=== PATIENT | male | born 1970 | race Caucasian/White ===

== ENCOUNTER 2020-04-21 22:13 | Observation (INO) | payer BC ==
--- OUTSIDE RECORDS SUMMARY | 2020-04-21 22:15 | XMS REPORT | Clinical Summary ---
:1970 Author Organization [facility] Address [address] [place] [address] Care Team Providers Name Role Phone Paula Hooper Primary Care Provider Allergies Active Allergy Reactions Severity Noted Date Comments Hydrocodone 03/02/2014 Medications Medication Sig Dispensed Refills Start Date End Date Status carbidopa-levodopa Take 2 tablets 0 Active (PARCOPA) 25-100 mg per by mouth 4 disintegrating tablet (four) times daily . trihexyphenidyl Take 5 mg by 0 A ctive (ARTANE) 5 MG tablet mouth 4 (four) times daily . HYDROXYZINE HCL ORAL Take 25 mg by 0 Active mouth 2 (two) times daily as needed . nebivolol (BYSTOLIC) 10 Take 10 mg by 0 Active MG tablet mouth daily. lisinopril Take 20 mg by 0 Activ e (PRINIVIL,ZESTRIL) 20 mouth daily. MG tablet mirtazapine (REMERON) 0 12/25/2019 Active 15 MG tablet senna-docusate (SENOKOT Take 1 tablet 30 tablet 11 09/01/2018 0 09/01/2019 S) 8.6-50 mg per tablet by mouth daily. Active Problems Problem Noted Date Parkinson disease 09/16/2018 Parkinson's disease 08/31/2018 Pre-op testing 08/31/2018 Encounters Date Type Specialty Care Team Description 02/13/2020 Hospital Encounter Computed Tomography Anandan, Up per limb weakness; MD Ericka Glasslation 1, [facility] [address] Room 02/13/2020 Hospital Encounter Computed Tomography Vivianndan, Up per limb weakness; MD Mata Glass 1, [facility] [address] Room 02/02/2020 Hospital Encounter Radiology Vivianndan, Weakness of both arms; MD Quan Fasciculations 01/23/2020 Outside Orders Central Scheduling Anasydniean, Weaknes s of both arms (Primary Dx); MD Quan Fasciculations; Upper limb weak ness; Fasciculation 01/03/2020 Outside Orders Central Scheduling Yfn Farias Atro phy of muscle of multiple sites (Primary Dx); Fasciculations after 04/21/2019 Social History Tobacco Use Types Packs/Day Years Used Date Never Smoker Smokeless Tobacco: Never Used Alcohol Use Drinks/Week oz/Week Comments No Alcohol Habits Answer Date Recorded How often do you have a drink containing alcohol? Never 08/26/2018 How many drinks containing alcohol do you have on a typical Not asked day when you are drinking? How often do you have six or more drinks on one occasion? No t asked Sex Assigned at Date Recorded Not on file Last Filed Vital Signs Vital Sign Reading Time Taken Comments Blood Pressure 123/89 02/02/2020 10:38 AM JOB SERVICE SPECIALIST Pulse 83 02/02/2020 11:54 AM JOB SERVICE SPECIALIST Temperature 36.6 C (97.8 F) 02/02/2020 10:38 AM JOB SERVICE SPECIALIST Respiratory Rate 20 02/02/2020 10:38 AM JOB SERVICE SPECIALIST Oxygen Saturation 100% 02/02/2020 10:38 AM JOB SERVICE SPECIALIST Inhaled Oxygen Concentration - - Weight 83.9 kg (185 lb) 02/02/2020 7:35 AM JOB SERVICE SPECIALIST Height 175.3 cm (5' 9") 02/02/2020 7:35 AM JOB SERVICE SPECIALIST Body Mass Index 27.32 02/02/2020 7:35 AM JOB SERVICE SPECIALIST Plan of Treatment Health Maintenance Due Date Last Done Comments COLON CANCER SCREENING COLONOSCOPY 1970 LIPID PANEL 02/16/2004 DEPRESSION SCREENING (12+) 03/01/2019 INFLUENZA VACCINE (#1) 2019 Implants Implanted Type Area Computing Systems Mechanic Device Shelf Model / Identifier Expiration Serial / Date Lot Imp Directional Lead Kit 45cm Db-2202-45 - [id number] IMPLANTS Right: [employer]: 03/20/2020 DB-2202-45 / Implanted: Qty: 1 on 08/31/2018 by Jc Mon MD at [facility] Head NEUROMODULATION [id number] / [id number] Kt Nancy Hole Cover Db-4600-C - [id number] IMPLANTS Right: [employer]: 07/03/2020 DB-4600-[id number] / Implanted: Qty: 1 on 08/31/2018 by Jc Mon MD at [facility] Head NEUROMODULATION / [id number] Model Db-1200-S Vercise Gevia 16 Contact Implantable Pulse Gener ator Kit Left: [employer] 07/20/2020 DB-1200-[id number] / Implanted: Qty: 1 on 09/16/2018 by Jc Mon MD at [facility] Head [id number] / N/A 55cm 8 Contact Extension Kit Model [id number] Left: Rahul [employer] 05/14/2020 [id number] / Implanted: Qty: 1 on 09/16/2018 by Jc Mon MD at [facility] Head [id number] / N/A Procedures Procedure Name Priority Date/Time Associated Diagnosis Comme nts CT BRAIN WITH IV Routine 02/13/2020 1:24 PM Resu lts for this CONTRAST JOB SERVICE SPECIALIST procedure are i n the results section. CT SPINE CERVICAL Routine 02/13/2020 1:23 PM Res ults for this WITHOUT IV JOB SERVICE SPECIALIST procedure are i n CONTRAST the results section. POCT-CREATININE Routine 02/13/2020 12:50 PM Resul ts for this JOB SERVICE SPECIALIST procedure are i n the results section. FL LUMBAR PUNCTURE Routine 02/02/2020 10:25 AM Weakness of bot h Results for this IMAGE-GUIDED JOB SERVICE SPECIALIST arms procedure are in Fasciculations the results section. after 04/21/[address] brain with IV contrast (02/13/2020 1:24 PM JOB SERVICE SPECIALIST) Specimen Narrative Performed At FINAL REPORT [facility] Exam: CT brain with contrast History: 49-year-old male with Parkinson 's. Comparison studies: Head CT 09/01/2018 and 08/12/2018 Technique: Axial images were obtained from the skul l base to the vertex. Coronal and sagittal reconstructions obt ained from the axial data. Dose modulation, iterative reconstructio n, and/or weight based adjustment of the mA/kV was utilized to reduce the radiation dose to as low as reasonably achievable. Contrast: 100 mL of Isovue 300. Findings: Scalp/skull: Unchanged positioning of the right front al deep brain stimulator with the tip of the subthalamic nucleus. Stre ak artifact from the stimulator limits evaluation of the brai n along the lead tract. No fractures, blastic or lytic lesions. Extra-axial spaces: No masses. No fluid collections. Brain sulci: Appropriate for age. Ventricles: Normal in size and configura tion. No hydrocephalus. Parenchyma: No masses, hemorrhage, acute or chronic cortical vascular insults. Sellar/suprasellar region: No abnormalit ies Craniocervical junction: Patent foramen magnum. No Chiari one malformation. Other: Unchanged mucus retention cyst ve rsus polyp in the left sphenoid sinus. IMPRESSION: 1. Unchanged right frontal deep brain st imulator when compared to prior brain MRI performed September 01, 2018. 2. No abnormal intracranial enhancement. Signed: Katie Pena MD Report Verified Date/Time: 02/13/2020 15:25:34 Reading Location: [id number] Procedure Note Interface, External Ris In - 02/13/2020 3:27 PM JOB SERVICE SPECIALIST FINAL REPORT Exam: CT brain with contrast History: 49-year-old male with Parkinson 's. Comparison studies: Head CT 09/01/2018 and 08/12/2018 Technique: Axial images were obtained from the skul l base to the vertex. Coronal and sagittal reconstructions obt ained from the axial data. Dose modulation, iterative reconstructio n, and/or weight based adjustment of the mA/kV was utilized to reduce the radiation dose to as low as reasonably achievable. Contrast: 100 mL of Isovue 300. Findings: Scalp/skull: Unchanged positioning of the right front al deep brain stimulator with the tip of the subthalamic nucleus. Stre ak artifact from the stimulator limits evaluation of the brai n along the lead tract. No fractures, blastic or lytic lesions. Extra-axial spaces: No masses. No fluid collections. Brain sulci: Appropriate for age. Ventricles: Normal in size and configura tion. No hydrocephalus. Parenchyma: No masses, hemorrhage, acute or chronic cortical vascular insults. Sellar/suprasellar region: No abnormalit ies Craniocervical junction: Patent foramen magnum. No Chiari one malformation. Other: Unchanged mucus retention cyst ve rsus polyp in the left sphenoid sinus. IMPRESSION: 1. Unchanged right frontal deep brain st imulator when compared to prior brain MRI performed September 01, 2018. 2. No abnormal intracranial enhancement. Signed: Katie Pena MD Report Verified Date/Time: 02/13/2020 1 5:25:34 Reading Location: [facility] [place]any [place] 2 - B01.626 Performing Organization Address City/State/Zipcode Phone Number [facility] CT spine cervical without IV contrast (02/13/2020 1:23 PM JOB SERVICE SPECIALIST) Specimen Narrative Performed At FINAL REPORT [facility] Exam: CT cervical spine without contrast History: 49-year-old male with upper brock b weakness. Comparison studies: None Technique: Axial images were obtained through the c ervical region. Coronal and sagittal images reconstructe d from the axial data. Dose modulation, iterative reconstructio n, and/or weight based adjustment of the mA/kV was utilized to reduce the radiation dose to as low as reasonably achievable. Intravenous contrast: None Findings: Airway: Patent. Atlantoaxial articulation: Mild degenera tive findings at the atlantoaxial interval. Alignment: Straightening of normal lordo sis with mild rightward curvature. Cervicomedullary junction: No abnormalit ies. Patent foramen magnum. Soft tissues: No gross abnormalities. Vertebrae: No fractures, neoplasm or infection. Degenerative changes: C2-C3: Mild left neural foraminal narrow ing due to uncovertebral and facet arthropathy and asymmetric to the left disc bulge. No disc herniation or canal or right foraminal s tenosis. C3-C4: Asymmetric to the left disc osteo phyte complex and bilateral uncovertebral and facet arthropathy resu lt in moderate bilateral neural foraminal narrowing. No canal shantanu nosis. C4-C5: Moderate left neural foraminal na rrowing due to uncovertebral and facet arthropathy. No right foramina l or canal stenosis. No disc herniation. C5-C6: Diffuse disc osteophyte complex a nd bilateral uncovertebral arthropathy result in moderate bilateral neural foraminal narrowing. Central disc protrusion also causes mild canal stenosis. C6-C7: Asymmetric to the right disc oste ophyte complex and bilateral uncovertebral arthropathy result in og re right and mild left neural foraminal narrowing and mild canal steno sis. C7-T1: Severe left facet arthropathy res ults in mild left neural foraminal narrowing. No right foraminal or canal stenosis. No disc herniation or bulge. IMPRESSION: 1.Degenerative changes of the cervical s pine with mild canal stenosis at C5-C6 and C6-C7. 2.Severe right foraminal narrowing at C6 -C7. Signed: Katie Pena MD Report Verified Date/Time: 02/13/2020 15:38:11 Procedure Note Interface, External Ris In - 02/13/2020 3:40 PM JOB SERVICE SPECIALIST FINAL REPORT Exam: CT cervical spine without contrast History: 49-year-old male with upper brock b weakness. Comparison studies: None Technique: Axial images were obtained through the c ervical region. Coronal and sagittal images reconstructe d from the axial data. Dose modulation, iterative reconstructio n, and/or weight based adjustment of the mA/kV was utilized to reduce the radiation dose to as low as reasonably achievable. Intravenous contrast: None Findings: Airway: Patent. Atlantoaxial articulation: Mild degenera tive findings at the atlantoaxial interval. Alignment: Straightening of normal lordo sis with mild rightward curvature. Cervicomedullary junction: No abnormalit ies. Patent foramen magnum. Soft tissues: No gross abnormalities. Vertebrae: No fractures, neoplasm or infection. Degenerative changes: C2-C3: Mild left neural foraminal narrow ing due to uncovertebral and facet arthropathy and asymmetric to the left disc bulge. No disc herniation or canal or right foraminal s tenosis. C3-C4: Asymmetric to the left disc osteo phyte complex and bilateral uncovertebral and facet arthropathy resu lt in moderate bilateral neural foraminal narrowing. No canal shantanu nosis. C4-C5: Moderate left neural foraminal na rrowing due to uncovertebral and facet arthropathy. No right foramina l or canal stenosis. No disc herniation. C5-C6: Diffuse disc osteophyte complex a nd bilateral uncovertebral arthropathy result in moderate bilateral neural foraminal narrowing. Central disc protrusion also causes mild canal stenosis. C6-C7: Asymmetric to the right disc oste ophyte complex and bilateral uncovertebral arthropathy result in og re right and mild left neural foraminal narrowing and mild canal steno sis. C7-T1: Severe left facet arthropathy res ults in mild left neural foraminal narrowing. No right foraminal or canal stenosis. No disc herniation or bulge. IMPRESSION: 1.Degenerative changes of the cervical s pine with mild canal stenosis at C5-C6 and C6-C7. 2.Severe right foraminal narrowing at C6 -C7. Signed: Katie Pena MD Report Verified Date/Time: 02/13/2020 1 5:38:11 Performing Organization Address City/State/Zipcode Phone Number [email or web address] POC-Creatinine (02/13/2020 12:50 PM JOB SERVICE SPECIALIST) POC-Creatinine 0.7 0.6 - 1.3 [facility] Comment: mg/dL [facility] : TESTED AT [facility] [address] [facility] [phone] CENTER : Manager Er/Chief Deputy Coroner ID = [id number] for DON ELY POC-EGFR 119 mL/min/1.73M2 [facility] [place] [place] Specimen Blood Performing Organization Address City/State/Zipcode Phone Number [facility] [address] [place] [address] CENTER [place] Lumbar Puncture Image-Guided (02/02/2020 10:25 AM JOB SERVICE SPECIALIST) Specimen Narrative Performed At FINAL REPORT [facility] Examination: Fluoroscopic guided lumbar puncture Clinical indication: Weakness of the arm s; fasciculations. Physician: Dr. Katie Pena Anesthesia: None. Medications:1% lidocaine and bicarbonate . Exposure/ DAP: L5-S1 mGy-cm2 Flouro time: L5-S1 min. Procedure: Informed consent was obtained from the patient following delineation of the risks, benefits, and alternatives to the procedure. Patient was then taken to [facility] fluoroscopy suite and placed prone on the table. Preliminary imaging of the lumbosacral spine was performed. The patient's robert k was marked, prepped and draped in the usual sterile fashion. A fter administration of local anesthesia, a 22-gauge Sprotte needle wa s advanced to the right aspect of the L4-L5 level utilizing imag e guidance. Fluid was not seen at this level despite changing tico ent's position and therefore, after discussion with the patient and elpidio s , higher level was approached and so the needle was then in serted to the L1-L2 level. Once needle was seen in the thecal sac, the inner stylet was removed and fluid was seen draining. The patient was then placed in the left lateral decubitus position. Once needle location was confirmed, 13.5 ml of clear, colorless cerebrospinal flu id was removed and sent for analysis. The needle was removed and shantanu rile bandage was applied. The patient tolerated the procedure well and was discharged home after one hour nurse monitoring. Impression: Fluoroscopic-guided L1-L2 pu ncture with successful cerebrospinal fluid collection. Signed: Katie Pena MD Report Verified Date/Time: 02/02/2020 11:18:53 Reading Location: [place] [address] Procedure Note Interface, External Ris In - 02/02/2020 11:21 AM JOB SERVICE SPECIALIST FINAL REPORT Examination: Fluoroscopic guided lumbar puncture Clinical indication: Weakness of the arm s; fasciculations. Physician: Dr. Katie Pena Anesthesia: None. Medications:1% lidocaine and bicarbonate . Exposure/ DAP: L5-S1 mGy-cm2 Flouro time: L5-S1 min. Procedure: Informed consent was obtained from the patient following delineation of the risks, benefits, and alternatives to the procedure. Patient was then taken to e fluoroscopy suite and placed prone on the table. Preliminary imaging of the lumbosacral spine was performed. The patient's back was marked, prepped and draped in the usual sterile fashion. Af ter administration of local anesthesia, a 22-gauge Sprotte needle wa s advanced to the right aspect of the L4-L5 level utilizing imag e guidance. Fluid was not seen at this level despite changing tico ent's position and therefore, after discussion with the patient and elpidio s , higher level was approached and so the needle was then in serted to the L1-L2 level. Once needle was seen in the thecal sac, the inner stylet was removed and fluid was seen draining. The patient was then placed in the left lateral decubitus position. Once needle location was confirmed, 13.5 ml of clear, colorless cerebrospinal flu id was removed and sent for analysis. The needle was removed and shantanu rile bandage was applied. The patient tolerated the procedure well and was discharged home after one hour nurse monitoring. Impression: Fluoroscopic-guided L1-L2 pu ncture with successful cerebrospinal fluid collection. Signed: Katie Pena MD Report Verified Date/Time: 02/02/2020 1 1:18:53 Reading Location: [place] 2 - [id number] Performing Organization Address City/State/Zipcode Phone Number GE RIS after 04/21/2019 Insurance Payer Benefit Plan / Subscriber ID Effective Dates Phone Addre ss Type Group BLUE BCBS PPO POS [id number] 2014-Presen [id number] PPO CROSS/BLUE EPO CHOICE t 2 [facility] [id number] BLUE BCBS PPO POS [id number] 2019-Presen [phone] [id number] PPO CROSS/BLUE EPO CHOICE t 2 [facility] [id number] Advance Directives For more information, please contact: [phone] Code Status Date Activated Date Inactivated Comments Full Code 09/16/2018 6:53 AM 09/16/2018 1:27 PM This code status was determined by: Patient Full Code 08/31/2018 7:18 AM 09/01/2018 1:13 PM This code status was determined by: Patient
--- OUTSIDE RECORDS SUMMARY | 2020-04-21 22:15 | XMS REPORT | Continuity of Care Document ---
:1970 Author Organization [facility] t Address [address] [place] [address] Dr. Mc[address] [place] [address] Care Team Providers Name Role Phone Rufus Paula Primary Care Physician Bayron PhD, K Attending Clinician Flavio Moran MD Attending Clinician Dva Adler MD Attending Clinician Dinora COTE Attending Clinician Jannette COTE Attending Clinician [address], [address] Room Attending Clinician Unavailable JANNETTE Attending Clinician Unavailable Dinora COTE Attending Clinician Saul Bartholomew NP Attending Clinician Elver Adams MD Attending Clinician Ben COTE Attending Clinician BEN Attending Clinician Unavailable BEN Admitting Clinician Unavailable Payers Payer Name Policy Type Policy Effective Date Expiration Date Sour ce Number BLUE CROSS/BLUE [id number] [facility] POS EPO Center [id number] [phone], [place] [address]Q Problems Condition Condition Condition Status Onset Resolution Last Treating Co mments Source Name Details Category Date Date Treatment Clinician Date Parkinson Parkinson Disease Active [facility] disease disease 09-16 [facility] - 00:[facility]: Medical 00 [place] Parkinson' Parkinson' Disease Active [facility] disease s disease 08-31 [facility] - 00:00: Medical 00 [place] Pre-op Pre-op Disease Active [facility] testing testing 08-31 [facility] - 00:00: Medical 00 [place] Pain, Pain, Diagnosis Active [facility] joint, joint, [facility] - shoulder, shoulder, Jerrell paul right right l Outpati ent Clinics Impingemen Impingemen Diagnosis Active [facility] t syndrome t syndrome Linda kes - of right of right Memori a shoulder shoulder l Outpati ent Clinics Allergies, Adverse Reactions, Alerts Allergy Allergy Status Severity Reaction(s) Onset Inactive Treating Comm ents Source Name Type Date Date Clinician Hydrocod Drug Active [facility] one Allergy 03-02 [facility] - 00:00: Medical 00 [place] Social History Social Habit Start Date Stop Date Quantity Comments Source History [facility] Lurosemary - Alcohol Binge Medical Al ter Sex Assigned At [facility] History [facility] Lurosemary - Alcohol Std Drinks [facility] Tobacco use and 2020-02-02 2020-02-02 Never used [facility] - exposure 00:00:00 00:00:00 [facility] Alcohol intake 2020-02-02 2020-02-02 [facility]00 non-drinker of Medical Ce nter alcohol (finding) History [facility] 2018-08-26 2018-08-[address] [facility] - Alcohol Frequency 00:00:00 00:00:00 [facility] Smoking Status Start Date Stop Date Source [facility] smoker [facility] [place] Medications Ordered Filled Start Stop Current Ordering Indication Dosage Frequency Signature Comments Components Source Medication Medication Date Date Medication? Clinician (SIG) Name Name mirtazapine 2019-[address] (REMERON) 0-26 [facility] - 15 MG 00:00: Medical tablet 00 [place] carbidopa-l Yes 2{tbl} Q.25D Take [address] evodopa - tablets by [place] - (PARCOPA) 11:26: mouth 4 Medic al 25-100 mg 59 (four) Center per times disintegrat daily . ing tablet trihexyphen Yes 5mg Q.25D Take [address] idyl 7-19 by mouth 4 [facility] - (ARTANE) 5 11:26: (four) Medic al MG tablet 59 times Center daily . HYDROXYZINE Yes 25mg Take [address] HCL ORAL 7-19 by mouth 2 [facility] - 11:26: (two) Medical 59 times Center daily as needed . nebivolol Yes 10mg QD Take [address] (BYSTOLIC) 7-19 by mouth [facility] - 10 MG 11:26: daily. Medical tablet 59 Center lisinopril Yes 20mg QD Take [address] (PRINIVIL,Z 7-19 by mouth Luke s - ESTRIL) 20 11:26: daily. Medic al MG tablet 59 Center senna-docus 2020- No 1{tbl} QD Take [address] ate 09-01-03 tablet by [facility] - (SENOKOT S) 00:00: 23:59 mouth Medi juan carlos 8.6-50 mg 00 :00 daily. Center per tablet Lipitor Lipitor Yes Marc not [facility] defined [facility] Carbidopa-L Carbidopa-L Yes Marc not [facility] evodopa evodopa Chris defined [facility] - [facility]ics Bystolic Bystolic Yes Marc not [facility] defined [facility] - [facility] Trihexyphen Trihexyphen Yes Marc not [facility] idyl HCl idyl HCl Chris defined Linda kes - [facility] Vital Signs Vital Name Observation Time Observation Value Comments Source Heart rate 2020-02-02 11:54:00 83 /min [facility] Systolic blood 2020-02-02 10:38:00 123 mm[Hg] [facility] Diastolic blood 2020-02-02 10:38:00 89 mm[Hg] [facility] S t [facility] Body temperature 2020-02-02 10:38:00 36.56 Criss [facility] Respiratory rate 2020-02-02 10:38:00 20 /min [facility] Oxygen saturation in 2020-02-02 10:38:00 100 /min [facility] - Arterial blood by Medical Ce nter Pulse oximetry Body height 2020-02-02 07:35:00 175.3 cm [facility] Body weight 2020-02-02 07:35:00 83.915 kg [facility] BMI 2020-02-02 07:35:00 27.32 kg/m2 [facility] Procedures Procedure Date / Time Performed Performing Clinician Sour e CT BRAIN WITH IV 2020-02-13 13:24:[address] [facility] kes - CONTRAST [facility] CT SPINE CERVICAL 2020-02-13 13:23:[address] [place] hassan - WITHOUT IV CONTRAST Medical Al ter POCT-CREATININE 2020-02-13 12:50:00 Quan Ramey [facility] FL LUMBAR PUNCTURE 2020-02-02 10:25:00 Quan Ramey SHALINI [facility] - IMAGE-GUIDED [facility] Plan of Care Planned Activity Planned Date Details Comments Source Future Scheduled 2019-10-[address] [facility] - Test 00:00:00 (#1) [code = [facility] INFLUENZA VACCINE (#1)] Future Scheduled 2019-03-[address] [facility] - Test 00:00:00 (12+) [code = [facility] DEPRESSION SCREENING (12+)] Future Scheduled 2004-02-[address] [facility] - Test 00:00:00 (procedure) [code = [facility] [id number]] Future Scheduled [address] [facility] - Test 00:00:00 malignant neoplasm of [facility] colon (procedure) [code = 324662575] Encounters Start End Encounter Admission Attending Care Care Encounter Source Date/Time Date/Time Type Type Clinicians Facility Department ID 2020-03-08 2020-03-08 Office GORDY Verma [id number] 09:04:33 13:18:05 Visit Danny HENRY [id number] Y 0.2.7.2.686 [id number] 2020-03-08 2020-03-08 Office GORDY Moran [id number] 09:03:55 12:56:25 Visit Neno Peter AMBULATOR [id number] Y 0.2.7.2.686 [id number] 2020-03-05 2020-03-05 Office Vitor CHLOEEugenio 1.2.840.114 [id number] 10:05:41 10:25:41 Visit Joe AMBULATOR 350.1.13.21 P Y 0.2.7.2.686 [id number] 2020-02-28 2020-02-28 Office GORDY Farias 1.2.840.114 [id number] 10:33:56 14:37:49 Visit Yfn AMBULATOR 350.1.13.21 Y 0.2.7.2.686 [id number] 2019-12-20 2019-12-20 Office SkyeGORDY calov 1.2.840.114 [id number] 11:00:59 12:24:55 Visit Yfn AMBULATOR 350.1.13.21 Y 0.2.7.2.686 [id number] 2019-09-20 2019-09-20 Office SkyeGORDY calvo 1.2.840.114 [id number] 10:26:34 14:30:06 Visit Yfn AMBULATOR 350.1.13.21 Y 0.2.7.2.686 [id number] 2019-06-28 2019-06-28 Office SkyeGORDY calvo 1.2.840.114 [id number] 10:55:07 11:49:39 Visit Yfn AMBULATOR 350.1.13.21 Y 0.2.7.2.686 [id number] 2018-12-02 2018-12-02 Office GORDY Bartholomew 1.2.840.114 [id number] 09:08:02 09:40:27 Visit Orville Burns. AMBULATOR 350.1.13.21 Y 0.2.7.2.686 [id number] 2018-11-08 2018-11-08 Office Javonluisa HCLOEEugenio 1.2.840.114 [id number] 12:45:53 13:52:33 Visit Nallelymelanypamela Burns. AMBULATOR 350.1.13.21 Y 0.2.7.2.686 [id number] 2018-10-14 2018-10-14 Office GORDY Adams 1.2.840.114 [id number] 14:30:41 15:42:05 Visit Guanako AMBULATOR 350.1.13.21 Elver Y 0.2.7.2.686 [id number] 2018-10-06 2018-10-06 Office GORDY Bartholomew 1.2.840.114 [id number] 09:26:38 11:12:41 Visit Orville Hughes AMBULATOR 350.1.13.21 Y 0.2.7.2.686 [id number] 2018-09-26 2018-09-26 Office Ben [facility] 1.2.840.114 [id number] 14:51:46 15:42:54 Visit , Jc AMBULATOR 350.1.13.21 Y 0.2.7.2.686 [id number] 2018-08-30 2018-08-30 [facility] [id number] 13:30:00 13:30:00 t [facility] - [facility] Clin[facility] Results Test Test Test Results Result Source Description Time Comments Comments CT, SPINE, 2020-01- Unlisted CERVICAL, 15 Reason for WITHOUT IV 15:38:00 Exam - [facility] - MEDICAL CONTRAST Click Yes CENTERName: PIO CONTRERAS and Shira DAWSON : 1970 Reason Sex: Below->Yes M Unlisted Reason for *FINAL REPORT PATIENT ID: Exam->[id number] Exam: CT cervical 98, R25.3 spine without contrast History: 49-year-old male with upper limb weakness.Comparison studies: None Technique: Axial images were obtained through the cervical region.Coronal and sagittal images reconstructed from the axial data.Dose modulation, iterative reconstruction, and/or weight based adjustment of the mA/kV was utilized to reduce the radiation dose to as low as reasonably achievable. Intravenous contrast: None Findings: Airway: Patent. Atlantoaxial articulation: Mild degenerative findings at the atlantoaxial interval.Alignment: Straightening of normal lordosis with mild rightward curvature.Cervicomedullary junction: No abnormalities. Patent foramen magnum.Soft tissues: No gross abnormalities. Vertebrae: No fractures, neoplasm or infection. Degenerative changes:C2-C3: Mild left neural foraminal narrowing due to uncovertebral and facet arthropathy and asymmetric to the left disc bulge. No disc herniation or canal or right foraminal stenosis.C3-C4: Asymmetric to the left disc osteophyte complex and bilateral uncovertebral and facet arthropathy result in moderate bilateral neural foraminal narrowing. No canal stenosis.C4-C5: Moderate left neural foraminal narrowing due to uncovertebral and facet arthropathy. No right foraminal or canal stenosis. No disc herniation.C5-C6: Diffuse disc osteophyte complex and bilateral uncovertebral arthropathy result in moderate bilateral neural foraminal narrowing. Central disc protrusion also causes mild canal stenosis.C6-C7: Asymmetric to the right disc osteophyte complex and bilateral uncovertebral arthropathy result in severe right and mild left neural foraminal narrowing and mild canal stenosis.C7-T1: Severe left facet arthropathy results in mild left neural foraminal narrowing. No right foraminal or canal stenosis. No disc herniation or bulge. IMPRESSION: 1.Degenerative changes of the cervical spine with mild canal stenosis at C5-C6 and C6-C7. 2.Severe right foraminal narrowing at C6-C7. Signed: Katie Pena MDReport Verified Date/Time: 02/13/2020 15:38:11 spine 2020-01- Interface, External Ris In - [facility] cervical 15 02/13/2020 3:40 PM CSTFINAL [facility] - without IV 15:38:00 REPORT Medical contrast Exam: CT cervical spine C enter without contrast History: 49-year-old male with upper limb weakness.Comparison studies: None Technique: Axial images were obtained through the cervical region.Coronal and sagittal images reconstructed from the axial data.Dose modulation, iterative reconstruction, and/or weight based adjustment of the mA/kV was utilized to reduce the radiation dose to as low as reasonably achievable. Intravenous contrast: None Findings: Airway: Patent. Atlantoaxial articulation: Mild degenerative findings at the atlantoaxial interval.Alignment: Straightening of normal lordosis with mild rightward curvature.Cervicomedullary junction: No abnormalities. Patent foramen magnum.Soft tissues: No gross abnormalities. Vertebrae: No fractures, neoplasm or infection. Degenerative changes:C2-C3: Mild left neural foraminal narrowing due to uncovertebral and facet arthropathy and asymmetric to the left disc bulge. No disc herniation or canal or right foraminal stenosis.C3-C4: Asymmetric to the left disc osteophyte complex and bilateral uncovertebral and facet arthropathy result in moderate bilateral neural foraminal narrowing. No canal stenosis.C4-C5: Moderate left neural foraminal narrowing due to uncovertebral and facet arthropathy. No right foraminal or canal stenosis. No disc herniation.C5-C6: Diffuse disc osteophyte complex and bilateral uncovertebral arthropathy result in moderate bilateral neural foraminal narrowing. Central disc protrusion also causes mild canal stenosis.C6-C7: Asymmetric to the right disc osteophyte complex and bilateral uncovertebral arthropathy result in severe right and mild left neural foraminal narrowing and mild canal stenosis.C7-T1: Severe left facet arthropathy results in mild left neural foraminal narrowing. No right foraminal or canal stenosis. No disc herniation or bulge. IMPRESSION: 1.Degenerative changes of the cervical spine with mild canal stenosis at C5-C6 and C6-C7. 2.Severe right foraminal narrowing at C6-C7. Signed: Katie Pena MDRst. [facility] Verified Date/Time: 02/13/2020 15:38:11 , BRAIN, WITH 2020-01- Unlisted IV CONTRAST 15 Reason for 15:25:00 Exam - [facility] Click Yes CENTERName: Markie CONTRERAS : 1970 Reason Sex: Below->Yes M Unlisted Reason for *FINAL REPORT PATIENT ID: Exam->[id number] Exam: CT brain with 98, R25.3 contrast History: 49-year-old male with Parkinson's. Comparison studies: Head CT 09/01/2018 and 08/12/2018 Technique: Axial images were obtained from the skull base to the vertex. Coronal and sagittal reconstructions obtained from the axial data.Dose modulation, iterative reconstruction, and/or weight based adjustment of the mA/kV was utilized to reduce the radiation dose to as low as reasonably achievable. Contrast: 100 mL of Isovue 300. Findings: Scalp/skull: Unchanged positioning of the right frontal deep brain stimulator with the tip of the subthalamic nucleus. Streak artifact from the stimulator limits evaluation of the brain along the lead tract. No fractures, blastic or lytic lesions. Extra-axial spaces: No masses. No fluid collections. Brain sulci: Appropriate for age.Ventricles: Normal in size and configuration. No hydrocephalus. Parenchyma:No masses, hemorrhage, acute or chronic cortical vascular insults. Sellar/suprasellar region: No abnormalitiesCraniocervical junction: Patent foramen magnum. No Chiari one malformation. Other: Unchanged mucus retention cyst versus polyp in the left sphenoid sinus. IMPRESSION: 1. Unchanged right frontal deep brain stimulator when compared to prior brain MRI performed September 01, 2018.2. No abnormal intracranial enhancement. Signed: Katie Pena MDReport Verified Date/Time: 02/13/2020 15:25:34 Reading Location: [facility] Reading Room [address] [place] [address] brain with 2020-01- Interface, External Ris In - [facility] IV contrast 15 02/13/2020 3:27 PM [facility] - 15:25:00 REPORT Medical Exam: CT brain with contrast Center History: 49-year-old male with Parkinson's. Comparison studies: Head CT 09/01/2018 and 08/12/2018 Technique: Axial images were obtained from the skull base to the vertex. Coronal and sagittal reconstructions obtained from the axial data.Dose modulation, iterative reconstruction, and/or weight based adjustment of the mA/kV was utilized to reduce the radiation dose to as low as reasonably achievable. Contrast: 100 mL of Isovue 300. Findings: Scalp/skull: Unchanged positioning of the right frontal deep brain stimulator with the tip of the subthalamic nucleus. Streak artifact from the stimulator limits evaluation of the brain along the lead tract. No fractures, blastic or lytic lesions. Extra-axial spaces: No masses. No fluid collections. Brain sulci: Appropriate for age.Ventricles: Normal in size and configuration. No hydrocephalus. Parenchyma:No masses, hemorrhage, acute or chronic cortical vascular insults. Sellar/suprasellar region: No abnormalitiesCraniocervical junction: Patent foramen magnum. No Chiari one malformation. Other: Unchanged mucus retention cyst versus polyp in the left sphenoid sinus. IMPRESSION: 1. Unchanged right frontal deep brain stimulator when compared to prior brain MRI performed September 01, 2018.2. No abnormal intracranial enhancement. Signed: Katie Pena Verified Date/Time: 02/13/2020 15:25:34 Reading Location: [facility] Reading Room [address] [place] [address] -Creatinine 2020-02-13 13:12:00 Test Item Value Reference Range Interpretation Comme nts POC-Creatinine (test code = 0.7 mg/dL 0.6-1.3 : TESTED AT [facility] [address]) [facility] [place] [address]: Wildlife Conservationist/Techni regi ID = [id number] for DON ELY POC-EGFR (test code = 1860) 119 mL/min/1.73M2 [facility][id number] 13:12:00 Test Item Value Reference Range Interpretation Comments POC-CREATININE 0.7 mg/dL 0.6-1.3 : TESTED AT [facility] (RAFAL) (test [address] [facility] Grant BLDG code = 1859) A, [facility] [address] [address]: Wildlife Conservationist/Techni regi ID = [id number] for DON ELY POC-EGFR 119 mL/min/1.73M2 (RAFAL) (test code = 1860) [place], LUMBAR PUNCTURE, [id number] 11:18:00Labs to be ordered:->Other (please add comment)Reason for Exam:->[id number], R25.3 [facility] 1970 Sex: MFINAL REPORT Examination: Fluoroscopic guided lumbar puncture Clinical indication: Weakness of the arms; fasciculations. Physician: Dr. Katie Pena Anesthesia: None. Medications:1% lidocaine and bicarbonate. Exposure/ DAP: L5-S1 [id number] time: L5-S1 min. Procedure: Informed consent was obtained from the patient following delineation of the risks, benefits, and alternatives to the procedure. Patient was then taken to the fluoroscopy suite and placed prone on the table. Preliminary imaging of the lumbosacral spine was performed. The patient's back was marked, prepped and draped in the usual sterile fashion. After administration of local anesthesia, [id number] Sprotte needle was advanced to the right aspect of the L4-L5 level utilizing image guidance. Fluid was not seen at this level despite changing patient's position and therefore, after discussion with the patient and his , higher level was approached and so the needle was then inserted to the L1-L2 level. Once needle was seen in the thecal sac, the inner stylet was removed and fluid was seen draining. The patient was then placed in the left lateral decubitus position. Once needle locationwas confirmed, 13.5 ml of clear, colorless cerebrospinal fluid was removed and sent for analysis. The needle was removed and sterile bandage was applied. The patient tolerated the procedure well and was discharged home after one hour nurse monitoring. Impression: Fluoroscopic-guided L1-L2 puncture with successful cerebrospinal fluid collection. Signed: Katie Pena MDReport Verified Date/Time: 02/02/2020 11:18:53 Reading Location: [facility] Reading Room [address] [place] [address] [place] Lumbar Puncture [id number] 11:18:00 Interface, External Ris In - 02/02/2020 11:21 AM CSTFINAL REPORT Examination:Fluoroscopic guided lumbar puncture Clinical indication: Weakness of the arms; fasciculations. Physician: Dr. Katie Pena Anesthesia: None. Medications:1% lidocaine and bicarbonate. Exposure/ DAP: L5-S1 [id number] time: L5-S1 min. Procedure: Informed consent was obtained from the patient following delineation of the risks, benefits, and alternatives to the procedure. Patient was then taken to the fluoroscopy suite and placed prone on the table. Preliminary imaging of the lumbosacral spine was performed. The patient's back was marked, prepped and draped in the usual sterile fashion. A fter administration of local anesthesia, a 22-gauge Sprotte needle was advanced to the right aspect of the L4-L5 level utilizing image guidance. Fluid was not seen at this level despite changing patient's position and therefore, after discussion with the patient and his , higher level was approached and so the needle was then inserted to the L1-L2 level. Once needle was seen in the thecal sac, the inner stylet was removed and fluid was seen draining. The patient was then placed in the left lateral decubitus position. Once needle location was confirmed, 13.5 ml of clear, colorless cerebrospinal fluid was removed and sent for analysis. The needle was removed and sterile bandage was applied. The patient tolerated the procedure well and was discharged home after one hour nurse monitoring. Impression: Fluoroscopic-guided L1-L2 puncture with successful cerebrospinal fluid collection. Signed: Ktaie Pena MDRyaredort Verified Date/Time: 02/02/2020 11:18:53 Reading Location: [facility] ReadingRoom [address] [place] [address] [facility], WITHOUT [id number] 09:28:00FINAL REPORT CT, BRAIN, WITHOUT CONTRAST CLINICAL INDICATION: Parkinsons dz,typical, levodopa responsivePending discharge; s/p DBS COMPARISON: August 12, 2018 TECHNIQUE: Noncontrast axial CT imaging of the brain and skull. DOSE REDUCTION: Dose modulation, iterative reconstruction, and/or weight-based adjustment of the mA/kV was utilized to reduce the radiation dose to as low as reasonably achievable. FINDINGS:Status post placement of right frontal approach deep brain stimulator lead which terminates in the region of the subthalamic nuclei. Streak artifact from lead minimally limits evaluation of the adjacent parenchyma. Within these limitations, no intracranial hemorrhage,midline shift or mass effect. Midline structures are normally developed. Mild chronic microvascular ischemic changes of the periventricular and subcortical white matter are present. No hydrocephalus. Orbits are within normal limits. Prior left lens surgery. No obstructive paranasal sinus disease. IMPRESSION: Expected postsurgical appearance status post placement of right frontal approach deep brain stimulator lead If there is persistent clinical concern for intracranial pathology, MR examination is recommended for further characterization. Signed: Kizzy Vallesort Verified Date/Time: 09/01/2018 09:28:39 Reading Location: [facility] Neuro Reading Room BASIC METABOLIC [id number] 05:26:00 Test Item Value Reference Range Interpretation Comments SODIUM (BEAKER) 139 meq/L 136-145 (test code = 381) POTASSIUM (BEAKER) 4.2 meq/L 3.5-5.1 (test code = 379) CHLORIDE (BEAKER) 107 meq/L 98-107 (test code = 382) CO2 (BEAKER) (test 27 meq/L 22-29 code = 355) BLOOD UREA NITROGEN 21 mg/dL 7-21 (BEAKER) (test code = 354) CREATININE (BEAKER) 0.90 mg/dL 0.57-1.25 (test code = 358) GLUCOSE RANDOM 103 mg/dL 70-105 (BEAKER) (test code = 652) CALCIUM (BEAKER) 8.9 mg/dL 8.4-10.2 (test code = 697) EGFR (BEAKER) (test mL/min/1.73 INSUFFIC IENT CLINICAL code = 1092) sq m DATA TO CALCULA TE ESTIMATED GFR. [id number] 05:19:00 Test Item Value Reference Range Interpretation Comments PHOSPHORUS (BEAKER) (test code = 3.9 mg/dL 2.3-4.7 604) [id number] 05:19:00 Test Item Value Reference Range Interpretation Comments MAGNESIUM (BEAKER) (test code = 1.9 mg/dL 1.6-2.6 627) CBC (HEMOGRAM ONLY)2018-09-01 04:39:00 Test Item Value Reference Range Interpretation Comments WHITE BLOOD CELL COUNT (BEAKER) 9.2 K/ L 3.5-10.5 (test code = 775) RED BLOOD CELL COUNT (BEAKER) 4.70 M/ L 4.63-6.08 (test code = 761) HEMOGLOBIN (BEAKER) (test code = 14.2 GM/DL 13.7-17.5 410) HEMATOCRIT (BEAKER) (test code = 42.1 % 40.1-51.0 411) MEAN CORPUSCULAR VOLUME (BEAKER) 89.6 fL 79.0-92.2 (test code = 753) MEAN CORPUSCULAR HEMOGLOBIN 30.2 pg 25.7-32.2 (BEAKER) (test code = 751) MEAN CORPUSCULAR HEMOGLOBIN CONC 33.7 GM/DL 32.3-36.5 (BEAKER) (test code = 752) RED CELL DISTRIBUTION WIDTH 12.1 % 11.6-14.4 (BEAKER) (test code = 412) PLATELET COUNT (BEAKER) (test 164 K/CU MM 150-450 code = 756) MEAN PLATELET VOLUME (BEAKER) 10.6 fL 9.4-12.4 (test code = 754) NUCLEATED RED BLOOD CELLS 0 /100 WBC 0-0 (BEAKER) (test code = 413) FL, TENONER OPERATOR IN OR/30 MINUTE [id number] 22:17:00Reason for exam:- >Stage 1 Implantation Deep Brain StimulatorFINAL REPORT Examination: Intraoperative evaluation 195 images were obtainedduring the procedure by the ordering service. Images are nondiagnostic as no radiologist was present at the time of imaging. Fluoroscopic time was 4.0 seconds. Please see the procedure report for details. Signed: Joss Lozanoort Verified Date/Time: 08/31/2018 22:17:49 Reading Location: [address] Reading Room MR, BRAIN, [id number] 16:39:00FINAL REPORT MR, BRAIN, WITH \T\ WITHOUT CONTRAST INDICATION: parkinson's disease Technique: MRI of the brain utilizing axial T1, T2, FLAIR, GRE, DWI, sagittal T1; and postgadolinium axial, sagittal, and coronal T1-weighted images. COMPARISON: None FINDINGS:Brain parenchyma is normal in morphology. Midline structures are normally developed. No restricted diffusion to suggest recent ischemic insult. No abnormal susceptibility. Scattered T2/FLAIR hyperintense foci within the periventricular and subcortical white matter are nonspecific, however, statistically represent chronic microvascular ischemic changes. No hydrocephalus. Orbits are within normal limits. No obstructive paranasal sinus disease. Mucus retention cyst within the left sphenoid sinus. Additional findings: None. IMPRESSION: Unremarkable MRI of the brain. Signed: Kizzy Valles Verified Date/Time: 08/12/2018 16:39:59 Reading Location: [facility] Reading Room CT, BRAIN, WITHOUT [id number] 13:29:00parkinson's diseaseFINAL REPORT CT, BRAIN, WITHOUT CONTRAST CLINICAL INDICATION: Parkinson's disease (HCC) G20 parkinson's disease COMPARISON: None TECHNIQUE: Thin section noncontrast axial CT imaging of the brain and skull, per stealth protocol. DOSE REDUCTION: Dose modulation, iterative reconstruction, and/or weight-based adjustment of the mA/kV was utilized to reduce the radiation dose to as low as reasonably achievable. FINDINGS:Cerebral parenchyma: Unremarkable.Midline structures: Normally positioned.Cerebellum and brainstem: Normal.Ventricles: Normal volume.Extra-axial spaces: Unremarkable. Calvarium and skull base: Intact.Paranasal sinuses and mastoid air cells: Visible chambers are clear.Orbital contents: Included portions unremarkable. Additional findings: None. IMPRESSION: No acute intracranial abnormality. [facility] neuronavigational study. Signed: JR Brandt Robert MDReport Verified Date/Time: 08/12/2018 13:29:39 Reading Location: [facility] B1 C013V Neuro Reading Room
[2020-04-21 22:58] LABS: Absolute Lymphocytes (CBC) 1.5 K/uL (0.7-4.9); Basophils % 0.5 % (0-1.3); Hematocrit 44.2 % (39.6-49.0); Lymphocytes % 18.4 % (15.3-44.8); MPV 8.7 fL (7.6-11.3); RBC Red Blood Cell Count 4.92 M/uL (4.33-5.43)
[2020-04-21 23:03] LABS: Protime INR 1.11
[2020-04-21 23:20] LABS: ALT/SGPT 11 U/L (12-78); AST/SGOT 13 U/L (15-37); Albumin 3.7 g/dL (3.4-5.0); Alkaline Phosphatase 75 U/L (45-117); BUN Blood Urea Nitrogen 24 mg/dL (7-18); Bicarbonate 28 mmol/L (21-32); Bilirubin Direct < 0.1 mg/dL (0-0.2); Bilirubin Total 0.4 mg/dL (0.2-1.0); Glucose Level 135 mg/dL (74-106); NT PRO-BNP 6 pg/mL (<125); Protein, Total 6.8 g/dL (6.4-8.2); Sodium Level 139 mmol/L (136-145); Troponin (Emerg Dept Use Only) < 0.02 ng/mL (0.0-0.045)
--- NOTE | 2020-04-21 23:52 | EDPHYS ---
Physician Documentation [facility] Name: Sameer Shea Age: 50 yrs Sex: Male : 1970 Arrival Date: 04/21/2020 Time: 22:13 Bed 8 Private MD: Chintan Hooper ED Physician Abdulkadir Fleming HPI: 04/21 23:07 This 50 yrs old Male presents to ER via Wheelchair with complaints of Chest jmm pain. 23:07 Onset: gradually, just prior to arrival. The pain does not radiate. Associated signs jmm and symptoms: Pertinent positives: shortness of breath. The chest pain is described as a pressure. Duration: The patient or guardian reports a single episode, that is still ongoing. This is a 50 year old male with a history of parkinsons, ALS that presents to the ED with complaints of chest pressure beginning just prior to arrival along with some shortness of breath. . Historical: - Allergies: 22:32 No Known Allergies; ss - PMHx: 22:32 ALS; Parkinsons; Hypertension; ss - PSHx: 22:32 DBS; Elvin shoulder repair; ss - Immunization history:: Adult Immunizations up to date. - Social history:: Smoking status: Patient denies any tobacco usage or history of. ROS: 23:07 Constitutional: Negative for fever, chills, and weight loss. jmm 23:07 Cardiovascular: Positive for chest pain. 23:07 Respiratory: Positive for shortness of breath. 23:07 All other systems are negative. Exam: 23:07 Head/Face: atraumatic. Eyes: EOMI, no conjunctival erythema appreciated ENT: Moist jmm Mucus Membranes Neck: Trachea midline, Supple Chest/axilla: Normal chest wall appearance and motion. 23:07 Abdomen/GI: Non distended, soft Back: Normal ROM Skin: General appearance color normal 23:07 Constitutional: The patient appears alert, awake, anxious. 23:07 Cardiovascular: Rate: tachycardic, Rhythm: regular. 23:07 Respiratory: the patient does not display signs of respiratory distress, Respirations: normal. 23:07 Neuro: unable to test due to ALS. 23:07 Psych: Behavior/mood is pleasant, cooperative. Vital Signs: 22:28 Pulse 108; Resp 17; Pulse Ox 96% ; Pain 0/10; ss 22:32 BP 97 / 74; ss 23:13 BP 120 / 85 LA; Pulse 93; Resp 18; Temp 98.7(TE); Pulse Ox 98% on R/A; ds4 MDM: 22:42 Patient medically screened. [facility] 23:51 Data reviewed: vital signs, nurses notes. ED course: I discussed the patient with Jamil Taylor whom accepted the patient to Dr. Majano service. . 04/21 22:39 Order name: Basic Metabolic Panel [facility] 04/21 22:39 Order name: CBC with Diff [facility] 04/21 22:39 Order name: LFT's [facility] 04/21 22:39 Order name: Magnesium; Complete Time: 23:22 [facility] 04/21 22:39 Order name: NT PRO-BNP; Complete Time: 23:22 [facility] 04/21 22:39 Order name: PT-INR; Complete Time: 23:41 [facility] 04/21 22:39 Order name: Troponin (emerg Dept Use Only); Complete Time: 23:22 [facility] 04/21 22:39 Order name: Basic Metabolic Panel; Complete Time: 23:22 [facility] 04/21 22:40 Order name: CBC with Automated Diff; Complete Time: 23:07 [facility] 04/21 22:40 Order name: Liver (Hepatic) Function; Complete Time: 23:22 [facility] 04/21 23:23 Order name: D-Dimer; Complete Time: 23:41 [facility] 04/21 23:32 Order name: COVID-19 : Document "Date of Symptom Onset" if Symptomatic. [facility] 04/21 22:39 Order name: XRAY Chest (1 view) [facility] 04/21 22:39 Order name: EKG; Complete Time: 22:40 [facility] 04/21 22:39 Order name: Cardiac monitoring; Complete Time: 22:42 [facility] 04/21 22:39 Order name: EKG - Nurse/Tech; Complete Time: 22:42 [facility] 04/21 22:39 Order name: IV Saline Lock; Complete Time: 22:42 [facility] 04/21 22:39 Order name: Labs collected and sent; Complete Time: 22:42 [facility] 04/21 22:39 Order name: O2 Per Protocol; Complete Time: 22:48 [facility] 04/21 22:39 Order name: O2 Sat Monitoring; Complete Time: 22:48 [facility] 04/22 00:40 Order name: COVID-19/FLU A+B EDMS Administered Medications: 04/22 00:39 Drug: Aspirin Chewable Tablet 324 mg Route: PO; rv 00:39 Follow up: Response: Medication administered at discharge. rv Disposition: 03:50 Co-signature as Attending Physician, Abdulkadir Fleming MD. [email or web address] Disposition: 04/21/20 23:52 Hospitalization ordered by Elyse Ford for Observation. Preliminary diagnosis is Chest pain, unspecified. - Bed requested for Telemetry/MedSurg (observation). - Status is Observation. rv - Condition is Stable. - Problem is new. - Symptoms are unchanged. Signatures: Dispatcher [employer] [facility] Dmitri Lubin PA PA [facility] Ofelia Nieves RN RN ss Jamil Taylor, DIRECTOR CUSTOMER-C DIRECTOR CUSTOMER-Cla1 Shilpa Gracia RN RN Evangelista Taylor RN RN rv Holmes, Maurice, MD MD 7 Corrections: (The following items were deleted from the chart) 04/21 23:23 23:15 D-DIMER+COAG.LAB.BRZ ordered. [facility] EDMS 23:53 23:33 Influenza Screen (A \\T\\ B)+BA.LAB.BRZ ordered. [facility] EDMS 23:54 23:33 CORONAVIRUS ordered. [facility] 04/22 01:34 04/21 23:52 Hospitalization Ordered by Elyse Ford MD for Observation. Preliminary cg diagnosis is Chest pain, unspecified. Bed requested for Telemetry/MedSurg (observation). Status is Observation. Condition is Stable. Problem is new. Symptoms are unchanged. [facility] 04/22 02:27 01:34 04/21/2020 23:52 Hospitalization Ordered by Elyse Ford MD for Observation. rv Preliminary diagnosis is Chest pain, unspecified. Bed requested for Telemetry/MedSurg (observation). Status is Observation. Condition is Stable. Problem is new. Symptoms are unchanged. cg
--- NOTE | 2020-04-21 23:52 | ER ---
Nurse's Notes [facility] Name: Sameer Shea Age: 50 yrs Sex: Male : 1970 Arrival Date: 04/21/2020 Time: 22:13 Bed 8 Private MD: Chintan Hooper Diagnosis: Chest pain, unspecified Presentation: 04/21 22:28 Chief complaint: Spouse and/or significant other states: "He has ALS and Parkinson's ss and just a little bit ago he said his chest felt heavy like he couldn't breath.". Coronavirus screen: Client denies travel out of the [place] in the last 14 days. Ebola Screen: Patient denies exposure to infectious person. Patient denies travel to an Ebola-affected area in the 21 days before illness onset. Initial Sepsis Screen: Does the patient have a suspected source of infection? No. Patient's initial sepsis screen is negative. Initial Sepsis Screen: Does the patient meet any 2 criteria? No. Patient's initial sepsis screen is negative. Risk Assessment: Do you want to hurt yourself or someone else? Patient reports no desire to harm self or others. Onset of symptoms was April 21, 2020. 22:28 Method Of Arrival: Wheelchair ss 22:28 Acuity: NATALIIA 3 ss Triage Assessment: 22:54 General: Appears comfortable. Respiratory: Reports shortness of breath at rest Onset: rv The symptoms/episode began/occurred suddenly, the patient has mild shortness of breath. Historical: - Allergies: 22:32 No Known Allergies; ss - PMHx: 22:32 ALS; Parkinsons; Hypertension; ss - PSHx: 22:32 DBS; Elvin shoulder repair; ss - Immunization history:: Adult Immunizations up to date. - Social history:: Smoking status: Patient denies any tobacco usage or history of. Screenin:53 Abuse screen: Denies threats or abuse. Denies injuries from another. Nutritional rv screening: No deficits noted. Tuberculosis screening: No symptoms or risk factors identified. Fall Risk No fall in past 12 months (0 pts). Secondary diagnosis (15 points) impaired mobility, IV access (20 points). Ambulatory Aid- Crutches/Cane/Walker (15 pts). Gait- Impaired (20 pts.). Mental Status- Oriented to own ability (0 pts). Total Nagel Fall Scale indicates High Risk Score (45 or more points). Fall prevention measures have been instituted. Side Rails Up X 2 Placed Close to Nursing Station Frequent Obs/Assessments Occuring Family Present and informed to notify staff if the need to leave the bedside As available patient and family educated on Fall Prevention Program and Strategies. Assessment: 22:52 General: Appears comfortable, Behavior is calm, cooperative. Pain: Denies pain. Neuro: rv Level of Consciousness is awake, alert, obeys commands, Oriented to person, place, time, situation. Cardiovascular: Rhythm is sinus tachycardia. Respiratory: Airway is patent Respiratory effort is even, unlabored, Breath sounds are clear bilaterally. Derm: Skin is intact. Vital Signs: 22:28 Pulse 108; Resp 17; Pulse Ox 96% ; Pain 0/10; ss 22:32 BP 97 / 74; ss 23:13 BP 120 / 85 LA; Pulse 93; Resp 18; Temp 98.7(TE); Pulse Ox 98% on R/A; ds4 ED Course: 22:13 Patient arrived in ED. am2 22:14 Chintan Hooper MD is Private Physician. am2 22:31 Triage completed. ss 22:32 Arm band placed on right wrist. ss 22:35 Evangelista Taylor, REUBEN is Primary Nurse. rv 22:38 Dmitri Lubin PA is PHCP. jmm 22:38 Abdulkadir Fleming MD is Attending Physician. jmm 22:45 Inserted saline lock: 20 gauge in right antecubital area, using aseptic technique. ds4 Blood collected. 22:54 Patient has correct armband on for positive identification. Bed in low position. Call rv light in reach. Side rails up X2. Adult w/ patient. electronic device monitor on. Pulse ox on. NIBP on. 22:54 No provider procedures requiring assistance completed. rv 23:19 XRAY Chest (1 view) In Process Unspecified. EDMS 23:51 Elyse Ford MD is Hospitalizing Provider. [facility] 04/22 00:16 IV is patent, with fluids infusing freely, Patient admitted, IV remains in place. rv Administered Medications: 00:39 Drug: Aspirin Chewable Tablet 324 mg Route: PO; rv 00:39 Follow up: Response: Medication administered at discharge. rv Outcome: 04/21 23:52 Decision to Hospitalize by Provider. david 04/22 00:16 Admitted to ER Hold. Please see [facility] for further documentation. rv Condition: good Instructed on the need for admit. 02:27 Patient left the ED. rv Signatures: Dispatcher [employer] EDMS Dmitri Lubin PA PA jmm Smirch, Shelby, REUBEN RN ss Jeremy Smith ds4 Archana Mills am2 Evangelista Taylor RN RN rv Corrections: (The following items were deleted from the chart) 04/21 23:30 23:13 BP 120 / 85 L Arm; Pulse 93bpm; Resp 18bpm; Pulse Ox 98% RA; rv ds4
[2020-04-22 00:40] LABS: SARS-COV-2 RT PCR NEGATIVE (NEGATIVE)
[2020-04-22] MEDS ORDERED: ASPIRIN 81 MG CHEWABLE TABLET ONE (00:49)
--- NOTE | 2020-04-22 01:36 | P.HP ---
Certification for Inpatient Patient admitted to: Observation With expected LOS: <2 Midnights Patient will require the following post-hospital care: None Practitioner: I am a practitioner with admitting privileges, knowledge of patient current condition, hospital course, and medical plan of care. Services: Services provided to patient in accordance with Admission requirements found in Title 42 Section 412.3 of the Code of Federal Regulations <LucyjoshJamil - Last Filed: 04/22/20 01:33> Patient History Date of Service: 04/22/20 Primary Care Provider: Dr. Hooper Reason for admission: CP History of Present Illness: 50-year-old male with history of hypertension, Parkinson's presents emergency department for chest pain/shortness of breath. Patient was resting in his bed when he began to have a pressure-like chest pain with associated shortness of breath, pain is currently ongoing rated at a 7/10. Initial troponin, EKG, chest x-ray unremarkable. Labs unremarkable. Last stress test a number of years ago per the . Patient is scheduled to have PEG tube placed and received CPAP/BiPAP machine in the coming weeks for his ALS diagnosis. ED provider wishes to admit patient for observation for chest pain rule out. Pain and shortness of breath could also be related to ALS with worsening respiratory function. - Past Medical/Surgical History -: Hypertension -: Parkinson's -: ALS -: Deep brain stimulator -: Bilateral shoulder surgery Psychosocial/ Personal History: Patient lives at home with his , is disabled. - Family History Mother -: Heart disease - Social History Smoking Status: Never smoker Alcohol use: No CD- Drugs: No Caffeine use: No Place of Residence: Home <Jamil Taylor - Last Filed: 04/22/20 01:33> Date of Service: 04/22/20 <Elyse Ford - Last Filed: 05/09/20 15:13> Allergies No Known Allergies Allergy (Unverified 04/22/20 02:30) Home Medications: Carbidopa/Levodopa [Rytary ER 48.75 mg-195 mg Cap] 1 each PO QID 04/22/20 Donepezil HCl 10 mg PO BEDTIME 04/22/20 Lisinopril [Zestril] 20 mg PO DAILY 04/22/20 Mirtazapine 15 mg PO BEDTIME 04/22/20 Riluzole 50 mg PO BID 04/22/20 Solifenacin [Vesicare*] 5 mg PO DAILY 04/22/20 Tamsulosin HCl 0.4 mg PO BEDTIME 04/22/20 armodafiniL [Armodafinil] 150 mg PO DAILY 04/22/20 Review of Systems 10-point ROS is otherwise unremarkable Respiratory: Shortness of Breath Cardiovascular: Chest Pain <Jamil Taylor - Last Filed: 04/22/20 01:33> Physical Examination - Physical Exam General: Alert, In no apparent distress, Oriented x3 HEENT: Atraumatic, Normocephalic Neck: Supple Respiratory: Diminished (Bilaterally) Cardiovascular: No edema, Normal S1 S2 Capillary refill: <2 Seconds Gastrointestinal: Normal bowel sounds, Soft and benign Musculoskeletal: No erythema, No tenderness, No warmth Integumentary: No tenderness/swelling, No erythema, No warmth Neurological: Normal speech, Sensation intact - Studies Laboratory Data (last 24 hrs) 04/21/20 22:44: PT 12.8 H, INR 1.11 04/21/20 22:44: WBC 7.90, Hgb 14.9, Hct 44.2, Plt Count 237 04/21/20 22:44: Sodium 139, Potassium 4.0, BUN 24 H, Creatinine 0.74, Glucose 135 H, Magnesium 2.0, Total Bilirubin 0.4, AST 13 L, ALT 11 L, Alkaline Phosphatase 75 <Jamil Taylor - Last Filed: 04/22/20 01:33> Assessment and Plan - Plan Assessment Chest pain rule out ACS Hypertension ALS Parkinson's Plan Chest pain rule out ACS: Trend troponins, monitor on telemetry. Cardiology consult. Anticipate normal troponins and likely discharge tomorrow to continue with care for ALS. Patient has appointment scheduled for BiPAP/CPAP and PEG tube insertion. DVT prophylaxis Lovenox 40 mg subcutaneous once daily. Hypertension: Continue home medications. ALS: Continue home meds and care for ALS on outpatient basis. Parkinson's: Continue home meds. Discharge Plan: Home Plan to discharge in: 24 Hours - Advance Directives Does patient have a Living Will: No Does patient have a Durable POA for Healthcare: No - Code Status/Comfort Care Code Status Assessed: Yes (DNR) Critical Care: No Time Spent Managing Pts Care (In Minutes): 55 <Jamil Taylor - Last Filed: 04/22/20 01:33> Date of Service: 04/22/20 Patient did well during hospital stay. Patient's echo was normal. At this time, patient is stable for discharge home. See discharge summary. <Elyse Ford - Last Filed: 05/09/20 15:13>
[2020-04-22] MEDS ORDERED: ONDANSETRON 4 MG/2 ML VIAL IV PRN (02:30)
[2020-04-22 03:22] VITALS: BMI 25.2
[2020-04-22 04:07] LABS: Absolute Lymphocytes (CBC) 1.6 K/uL (0.7-4.9); Basophils % 0.6 % (0-1.3); Hematocrit 42.5 % (39.6-49.0); Lymphocytes % 27.8 % (15.3-44.8); MPV 8.8 fL (7.6-11.3); RBC Red Blood Cell Count 4.68 M/uL (4.33-5.43)
[2020-04-22 04:27] LABS: BUN Blood Urea Nitrogen 23 mg/dL (7-18); Bicarbonate 30 mmol/L (21-32); Glucose Level 101 mg/dL (74-106); HDL Cholesterol 44 mg/dL (40-60); LDL Cholesterol, Calculated 64 (<130); Magnesium 2.1 mg/dL (1.8-2.4); Potassium 3.9 mmol/L (3.5-5.1); Sodium Level 140 mmol/L (136-145); Troponin I < 0.02 ng/mL (0.0-0.045)
[2020-04-22 07:56] LABS: Urine Appearance CLEAR; Urine Bilirubin NEGATIVE (NEG); Urine Blood NEGATIVE (NEG); Urine Color YELLOW; Urine Glucose NEGATIVE (NEG); Urine Protein NEGATIVE (NEG)
[2020-04-22 07:57] LABS: Urine Microscopic Reflex NO UMIC
--- NOTE | 2020-04-22 08:48 | RAD REPORT ---
EXAM DESCRIPTION: RAD - Chest Single View - 04/21/2020 11:19 pm CLINICAL HISTORY: SOB Chest pain. COMPARISON: No comparisons FINDINGS: Portable technique limits examination quality. Haziness is present left lung base which may indicate a mild infiltrate or atelectasis. The lungs are otherwise clear. The heart is normal in size. Single lead left-sided stimulator device.
[2020-04-22] MEDS ORDERED: ENOXAPARIN 40 MG/0.4 ML SQ SCH (09:00)
[2020-04-22] MEDS ORDERED: ASPIRIN EC 81 MG TAB PO SCH (09:00)
[2020-04-22] MEDS ORDERED: POTASSIUM 25 MEQ EFFERV TAB PO ONE (09:00)
--- NOTE | 2020-04-22 12:48 | CON ---
Date of Consultation: 04/22/[address] Ansari' service on 04/22/2020 Reason For Consultation: Chest pain. History Of Present Illness: Mr. Shea is a 50 years old. He has history of parkinsonism, dementia , hypertension, and ALS. He is a do not resuscitate. Came in with substernal chest pressure with sh ortness of breath that lasted for about 12 to 14 hours without any nausea, vomiting, diaphoresis, PND , orthopnea, pedal edema, palpitation, or syncope. Pain was nonexertional. The patient's pain did n ot radiate. It was not associated with body movement, food, or time of the day. He has already rule d out for an NM. Past Medical History: As stated above. Allergies: NONE. Review of Systems: Positive for being a DNR. Social History: Negative. Family History: Noncontributory. Medications: At home include carbidopa, tamsulosin, benazepril, VESIcare, lisinopril and a medicine called riluzole. Physical Examination: General: The patient has ALS. He did not speak. His family spoke for him and does not appear to be any acute distress. Vital Signs: Stable, afebrile. HEENT: Negative. Neck: Supple. No bruits. Chest: Clear. Cardiac: Revealed a regular rhythm and rate. No murmurs, gallops, or rubs. Abdomen: Benign. Extremities: No clubbing, cyanosis, or edema. Neurologic: and he has ALS. Diagnostic Studies: His workup has been completely negative. Normal EKG, normal x-ray, normal tropo rob. Impression And Plan: My impression is the patient has atypical chest pain, more likely related to am yotrophic lateral sclerosis or gastroesophageal reflux disease or possibly pulmonary. Echocardiogram is pending. I do not think the patient or the family want any invasive cardiac workup on him. We w ill see what the echocardiogram shows before making any further decisions. Continue present regimen. KIMBERLEE/BRIT Voice ID: [id number] Report ID: [id number]
[2020-04-22 16:14] VITALS: BP 112/71; TEMP 98
[2020-04-22] MEDS ORDERED: CARBIDOPA PO SCH (17:00)
[2020-04-22] MEDS ORDERED: LEVODOPA PO SCH (17:00)
[2020-04-22 18:19] VITALS: O2SAT 98
[2020-04-22] MEDS ORDERED: DONEPEZIL HCL 5 MG TAB PO SCH (21:00)
[2020-04-22] MEDS ORDERED: TAMSULOSIN 0.4 MG SR CAP PO SCH (21:00)
[2020-04-22] MEDS ORDERED: MIRTAZAPINE 15 MG TAB PO SCH (21:00)
[2020-04-22] MEDS ORDERED: RILUZOLE 50 MG PO SCH (21:00)
[2020-04-23] MEDS ORDERED: ARMODAFINIL 150 MG PO SCH (09:00)
[2020-04-23] MEDS ORDERED: SOLIFENACIN SUCCIN 5 MG TAB PO SCH (09:00)
[2020-04-23] MEDS ORDERED: lisinopriL 20 MG TAB PO SCH (09:00)
--- NOTE | 2020-04-23 09:12 | ECHO ---
HEIGHT: 5 ft 9 in WEIGHT: 171 lb 0 oz DATE OF STUDY: 04/22/[address]: Marko Yo MD 2-DIMENSIONAL: YES M.MODE: YES DOPPLER: YES COLOR FLOW: YES TDS: NO PORTABLE: NO DEFINITY: NO BUBBLE STUDY: NO DIAGNOSIS: CHEST PAIN CARDIAC HISTORY: CATHERIZATION: NO SURGERY: NO PROSTHETIC VALVE: NO PACEMAKER: NO MEASUREMENTS (cm) DIASTOLIC (NORMALS) SYSTOLIC (NORMALS) IVSd 1.0 (0.6-1.2) LA Diam 2.5 (1.9-4.0) LVEF 60% LVIDd 3.5 (3.5-5.7) LVIDs 2.4 (2.0-3.5) %FS 31% LVPWd 1.0 (0.6-1.2) Ao Diam 2.3 (2.0-3.7) 2 DIMENSIONAL ASSESSMENT: RIGHT ATRIUM: NORMAL LEFT ATRIUM: NORMAL RIGHT VENTRICLE: NORMAL LEFT VENTRICLE: NORMAL TRICUSPID VALVE: NORMAL MITRAL VALVE: NORMAL PULMONIC VALVE: NORMAL AORTIC VALVE: NORMAL PERICARDIAL EFFUSION: NONE AORTIC ROOT: NORMAL LEFT VENTRICULAR WALL MOTION: NORMAL DOPPLER/COLOR FLOW: NORMAL COMMENTS: NORMAL LEFT VENTRICULAR EJECTION FRACTION 55-60%. NORMAL WALL MOTION. TECHNOLOGIST: Terrie JEFFREY
--- NOTE | 2020-05-09 14:59 | P.DS ---
Discharge Date: 04/22/20 Primary Care Provider: Dr. Hooper Disposition: ROUTINE DISCHARGE Discharge Condition: GOOD Reason for Admission: CP Consultations: Political Cartoonist Brief History of Present Illness: 50-year-old male with history of hypertension, Parkinson's presents emergency department for chest pain/shortness of breath. Patient was resting in his bed when he began to have a pressure-like chest pain with associated shortness of breath, pain is currently ongoing rated at a 7/10. Initial troponin, EKG, chest x-ray unremarkable. Labs unremarkable. Last stress test a number of years ago per the . Patient is scheduled to have PEG tube placed and received CPAP/BiPAP machine in the coming weeks for his ALS diagnosis. ED provider wishes to admit patient for observation for chest pain rule out. Pain and shortness of breath could also be related to ALS with worsening respiratory function. Hospital Course: Echo was unremarkable. Patient is doing well and is stable for discharge. Patient will follow with Cardiology for further outpatient workup. Vital Signs/Physical Exam: Temp Pulse Resp BP Pulse Ox 98.0 F 84 18 112/71 98 04/22/20 16:00 04/22/20 16:00 04/22/20 16:00 04/22/20 16:00 04/22/20 16:00 General: Alert, In no apparent distress, Oriented x3 Laboratory Data at Discharge: WBC 5.90 K/uL (4.3-10.9) D 04/22/20 03:25 Hgb 14.1 g/dL (13.6-17.9) 04/22/20 03:25 Hct 42.5 % (39.6-49.0) 04/22/20 03:25 Plt Count 202 K/uL (152-406) 04/22/20 03:25 PT 12.8 SECONDS (9.5-12.5) H 04/21/20 22:44 INR 1.11 04/21/20 22:44 Sodium 140 mmol/L (136-145) 04/22/20 03:25 Potassium 3.9 mmol/L (3.5-5.1) 04/22/20 03:25 BUN 23 mg/dL (7-18) H 04/22/20 03:25 Creatinine 0.62 mg/dL (0.55-1.3) 04/22/20 03:25 Glucose 101 mg/dL (74-106) 04/22/20 03:25 Magnesium 2.1 mg/dL (1.8-2.4) 04/22/20 03:25 Total Bilirubin 0.4 mg/dL (0.2-1.0) 04/21/20 22:44 AST 13 U/L (15-37) L 04/21/20 22:44 ALT 11 U/L (12-78) L 04/21/20 22:44 Alkaline Phosphatase 75 U/L (45-117) 04/21/20 22:44 Troponin I < 0.02 ng/mL (0.0-0.045) 04/22/20 11:03 Triglycerides 54 mg/dL (<150) 04/22/20 03:25 Cholesterol 119 mg/dL (<200) 04/22/20 03:25 HDL Cholesterol 44 mg/dL (40-60) 04/22/20 03:25 Cholesterol/HDL Ratio 2.70 04/22/20 03:25 Home Medications: Carbidopa/Levodopa [Rytary ER 48.75 mg-195 mg Cap] 1 each PO QID 04/22/20 Donepezil HCl 10 mg PO BEDTIME 04/22/20 Lisinopril [Zestril] 20 mg PO DAILY 04/22/20 Mirtazapine 15 mg PO BEDTIME 04/22/20 Riluzole 50 mg PO BID 04/22/20 Solifenacin [Vesicare*] 5 mg PO DAILY 04/22/20 Tamsulosin HCl 0.4 mg PO BEDTIME 04/22/20 armodafiniL [Armodafinil] 150 mg PO DAILY 04/22/20 Physician Discharge Instructions: OK TO DC IV AND DC HOME FOLLOW-UP WITH PRIMARY CARE PROVIDER IN 1-2 WEEKS FOLLOW-UP WITH CARDIOLOGY IN 1-2 WEEKS RETURN TO THE ER IF symptoms worsen CALL or TEXT DR. FUCHS AT [phone] IF ANY QUESTIONS REGARDING HOSPITAL STAY. PLEASE CALL THE FLOOR AT [phone] IF ANY MEDICATION OR NURSING QUESTIONS. Diet: AHA Activity: Fall precautions Followup: Marko Yo MD [ACTIVE - CAN ADMIT] - 1-2 Weeks (Call for appointment.) Chintan Hooper MD [Primary Care Provider] - 1-2 Weeks (Call for appointment.)
== END 2020-04-22 18:38 | disposition home or self-care (01) ==
LOC: ER 22:13 → ERHOLD 04-22 00:52 → 4TH 04-22 02:03
PROVIDERS: ADMIT Hospitalist; ATTEND Hospitalist
DX: R07.89 Other chest pain (principal); G12.21 Amyotrophic lateral sclerosis; G20 Parkinson's disease; F02.80 Dementia in other diseases classified elsewhere, unspecified severity, without behavioral disturbance, psychotic disturbance, mood disturbance, and anxiety; I10 Essential (primary) hypertension; K21.9 Gastro-esophageal reflux disease without esophagitis; Z66 Do not resuscitate; Z20.822 Contact with and (suspected) exposure to COVID-19; Z82.49 Family history of ischemic heart disease and other diseases of the circulatory system
CPT/HCPCS: 93306; 85025 ×2; 80048 ×2; 36415; 83735 ×2; 85610; 80061; 85379; 80076; 84443; 81003; 84484 ×3; 84439; 83880; 0240U; 71045; 99285; J1650; G0378 ×2

== ENCOUNTER 2020-06-08 22:43 | Inpatient (IN) | payer BC ==
--- OUTSIDE RECORDS SUMMARY | 2020-06-08 22:47 | XMS REPORT | Continuity of Care Document ---
:1970 Author Organization [facility] t Address [address] [place] [address] Care Team Providers Name Role Phone HooperPaula Primary Care Physician Flavio Moran MD Attending Clinician Eugenio Corbett MD Attending Clinician Irvin Metz MD Attending Clinician Nato Clark MD Attending Clinician Gregory Adkins MD Attending Clinician Oumar MARSH Attending Clinician Unavailable System, Not In Attending Clinician Unavailable Bayron PhD, K Attending Clinician Dav Adler MD Attending Clinician Dinora COTE Attending Clinician Jannette COTE Attending Clinician [address] [place] [address] Room Attending Clinician Unavailable JANNETTE Attending Clinician Unavailable Dinora COTE Attending Clinician Saul Bartholomew NP Attending Clinician Elver Adams MD Attending Clinician Ben COTE Attending Clinician BEN Attending Clinician Unavailable BEN Admitting Clinician Unavailable Payers Payer Name Policy Type Policy Effective Date Expiration Date Sour ce Number [facility] [id number] [address] [facility] [id number] 2020- 00:00:00 - M edical PresentMedicare Center BLUE CROSS/BLUE [id number] [facility] [address] [facility] SHIELDBCBS PPO POS 6 00:00:00 - [facility] Center [id number], [place] [address]FA BCBSBCBS OUT OF 2019 [id number] 00:[facility] Met ignacioist 2019-PresentPPO Problems Condition Condition Condition Status Onset Resolution Last Treating Co mments Source Name Details Category Date Date Treatment Clinician Date Parkinson Parkinson Disease Active [facility] disease disease 09-16 - 00:00: Medical 00 [place] Parkinson' Parkinson' Disease Active [facility] disease s disease 08-31 [facility] - 00:00: Medical Center Pre-op Pre-op Disease Active [facility] testing testing 08-31 - 00:00: Medical 00 Center Pain, Pain, Diagnosis Active [facility] joint, joint, [facility] - shoulder, shoulder, Jerrell paul right right [facility] Clin[facility] Impingemen Impingemen Diagnosis Active [facility] t syndrome t syndrome [facility] - of right of right Memori a shoulder shoulder l Outpati ent Clinics Allergies, Adverse Reactions, Alerts Allergy Allergy Status Severity Reaction(s) Onset Inactive Treating Comm ents Source Name Type Date Date Clinician Hydrocod Drug Active Itching [facility] one Allergy 03-02 - 00:00: Medical 00 [place] Social History Social Habit Start Date Stop Date Quantity Comments Source History SDOH [facility] - Alcohol Std Drinks [facility] History SDOH [facility] - Alcohol Binge Medical Al ter Sex Assigned At [facility] Exposure to Not sure [facility] - SARS-CoV-2 (event) Medica l [place] Tobacco use and 2020-06-03 2020-06-[address] [facility] - exposure 00:00:00 00:00:00 Medical Center Alcohol intake 2020-06-03 2020-06-[address] [facility] - 00:[facility]:00 00:00:00 non-drinker of Medical Ce nter alcohol (finding) History SDOH 2018-08-26 2018-08-[address] [facility] - Alcohol Frequency 00:00:00 00:00:00 Medical Center Smoking Status Start Date Stop Date Source Never smoker [facility] - M edical Center Medications Ordered Filled Start Stop Current Ordering Indication Dosage Frequency Signature Comments Components Source Medication Medication Date Date Medication? Clinician (SIG) Name Name carbidopa-l Yes 2{tbl} Q.25D Take [address] evodopa 4-05 tablets by [facility] - (PARCOPA) 14:46: mouth 4 Medic al 25-100 mg 14 (four) Center per times disintegrat daily . ing tablet HYDROXYZINE Yes 25mg Take [address] HCL ORAL 4-05 by mouth 2 [facility] - 14:46: (two) Medical 14 times Center daily as needed . lisinopril Yes 20mg QD Take [address] (PRINIVIL,Z 4-05 by mouth Luke s - ESTRIL) 20 14:46: daily. Medic al MG tablet 14 Center tamsulosin Yes .8mg QD Take 0.[address] (FLOMAX) 4-05 mg by [facility] - 0.4 mg Cap 14:46: mouth Medica l 24 hr 14 daily. Center capsule trihexyphen 2020- No 5mg Q.25D Take [address] idyl 4-02 04-02 by mouth 4 [facility] - (ARTANE) 5 08:48: 00:00 (four) Medi juan carlos MG tablet 07 :00 times Center daily . nebivolol 2020- No 10mg QD Take [address] (BYSTOLIC) 4- 04-02 by mouth Luke [facility] - 10 MG 08:47: 00:00 daily. Medical tablet 45 :00 [place] mirtazapine 2019-03 Yes QD nightly . [facility] (REMERON) 0-26 [facility] - 15 MG 00:00: Medical tablet 00 Center senna-docus 2020- No 1{tbl} QD Take [address] ate 7-04 07-03 tablet by [facility] - (SENOKOT S) 00:00: 23:59 mouth Medi juan carlos 8.6-50 mg 00 :00 daily. Center per tablet Carbidopa-L Carbidopa-L Yes Marc not [facility] St evodopa evodopa Perez defined Luke [facility] - [facility] Bystolic Bystolic Yes Marc not [facility] defined [facility] Trihexyphen Trihexyphen Yes Marc not [facility] idyl HCl idyl HCl Perez defined Linda k[facility] - [facility] Lipitor Lipitor Yes Marc not [facility] Perez defined [facility] - [facility] Vital Signs Vital Name Observation Time Observation Value Comments Source Systolic blood 2020-06-03 13:59:00 126 mm[Hg] [facility] Diastolic blood 2020-06-03 13:59:00 81 mm[Hg] [facility] Heart rate 2020-06-03 13:59:00 123 /min [facility] Body temperature 2020-06-03 13:59:00 36.72 Criss [facility] Respiratory rate 2020-06-03 13:59:00 16 /min [facility] Oxygen saturation in 2020-06-03 13:59:00 97 /min [facility] Arterial blood by Medical Ce nter Pulse oximetry Body height 2020-06-03 11:47:00 175.3 cm [facility] Body weight 2020-06-03 11:47:00 66.225 kg [facility] BMI 2020-06-03 11:47:00 21.56 kg/m2 [facility] Procedures Procedure Date / Time Performed Performing Clinician [facility] e REPORT OF PROCEDURE - 2020-06-03 13:27:03 Jasen Metz I [facility] ENDOSCOPY [facility] UPPER ENDOSCOPY,PEG 2020-06-03 13:00:00 Jasen Metz [facility] CT BRAIN WITH IV 2020-02-13 13:24:00 Quan Ramey [facility] CONTRAST [facility] CT SPINE CERVICAL 2020-02-13 13:23:[address] [facility] - WITHOUT IV CONTRAST Medical Al ter POCT-CREATININE 2020-02-13 12:50:[address] [facility] [place] LUMBAR PUNCTURE 2020-02-02 10:25:[address] [facility] - IMAGE-GUIDED Medical Center Plan of Care Planned Activity Planned Date Details Comments Source Future Scheduled 2020-10-[address] [facility] - Test 00:00:00 (Season Ended) [code Medical Center = INFLUENZA VACCINE (Season Ended)] Future Scheduled 2020-09-29 INFLUENZA VACCINE [facility] 00:00:00 [code = INFLUENZA VACCINE] Future Scheduled 2020-05-[address] - Test 00:00:00 (WELCOME TO MEDICARE) [facility] [code = Medicare IPPE (WELCOME TO MEDICARE)] Future Scheduled 2020-03-[address] [facility] - Test 00:00:00 (12+) [code = Medical Center DEPRESSION SCREENING (12+)] Future Scheduled 2019 SHINGLES VACCINES ([address] [facility] - Test 00:00:00 of 2) [code = Medical Center SHINGLES VACCINES (1 of 2)] Future Scheduled 2019 COLONOSCOPY SCREENING [place] [facility] [facility] Test 00:00:00 [code = COLONOSCOPY SCREENING] Future Scheduled 2019 SHINGLES VACCINES [facility] 00:00:00 (#1) [code = SHINGLES VACCINES (#1)] Future Scheduled 2004-02-[address] [facility] - Test 00:00:00 (procedure) [code = Medical Center 25691194] Future Scheduled 1988-02-16 DTAP/TDAP/TD VACCINES [facility] Test 00:00:00 (1 - Tdap) [code = Medical C enter DTAP/TDAP/TD VACCINES (1 - Tdap)] Future Scheduled 1987 HEPATITIS C SCREENING [facility] Test 00:00:00 [code = HEPATITIS C Medical Center SCREENING] Future Scheduled 1987 Hepatitis C screening [place] [facility] [facility] Test 00:00:00 (procedure) [code = 137687986] Future Scheduled 1985 COVID-19 VACCINE (1) [facility] Test 00:00:00 [code = COVID-19 VACCINE (1)] Future Scheduled [address] [facility] - Test 00:00:00 malignant neoplasm of Medica l Center colon (procedure) [code = 454748300] Encounters Start End Encounter Admission Attending Care Care Encounter Source Date/Time Date/Time Type Type Clinicians Facility Department ID 2020-06-07 2020-06-07 Office GORDY Moran 1.2.840.114 [id number] 09:11:15 15:44:06 Visit Jabari Muniz AMBULATOR 350.1.13.21 Y 0.2.7.2.686 [id number] 2020-06-07 2020-06-07 Office GORDY Corbett 1.2.840.114 [id number] 09:13:10 09:33:10 Visit Surinder Becker AMBULATOR 350.1.13.21 Y 0.2.7.2.686 [id number] 2020-04-26 2020-04-26 [facility] [id number] [address] [place] [address] 00:00:00 00:00:00 JABARI Antonio [facility] 2020-03-08 2020-03-08 Office GORDY Verma 1.2.840.114 [id number] 09:04:33 13:18:05 Visit Danny Galvez AMBULATOR 350.1.13.21 Y 0.2.7.2.686 [id number] 2020-03-08 2020-03-08 Office GORDY Moran 1.2.840.114 [id number] 09:03:55 12:56:25 Visit Jabari Muniz AMBULATOR 350.1.13.21 Y 0.2.7.2.686 [id number] 2020-03-05 2020-03-05 Office GORDY Adler 1.2.840.114 [id number] 10:05:41 10:25:41 Visit Joe AMBULATOR 350.1.13.21 P Y 0.2.7.2.686 [id number] 2020-02-28 2020-02-28 Office GORDY Farias 1.2.840.114 [id number] 10:33:56 14:37:49 Visit Yfn AMBULATOR 350.1.13.21 Y 0.2.7.2.686 [id number] 2019-12-20 2019-12-20 Office CHLOE FariasM 1.2.840.114 [id number] 11:00:59 12:24:55 Visit Yfn AMBULATOR 350.1.13.21 Y 0.2.7.2.686 [id number] 2019-09-20 2019-09-20 Office Dinora BCM 1.2.840.114 [id number] 10:26:34 14:30:06 Visit Yfn AMBULATOR 350.1.13.21 Y 0.2.7.2.686 [id number] 2019-06-28 2019-06-28 Office Dinora BCM 1.2.840.114 [id number] 10:55:07 11:49:39 Visit Yfn AMBULATOR 350.1.13.21 Y 0.2.7.2.686 [id number] 2018-12-02 2018-12-02 Office Puma, BCM 1.2.840.114 [id number] 09:08:02 09:40:27 Visit Orville E. AMBULATOR 350.1.13.21 Y 0.2.7.2.686 [id number] 2018-11-08 2018-11-08 Office Puma, BCM 1.2.840.114 [id number] 12:45:53 13:52:33 Visit Camachog E. AMBULATOR 350.1.13.21 Y 0.2.7.2.686 [id number] 2018-10-14 2018-10-14 Office Angie BCM 1.2.840.114 [id number] 14:30:41 15:42:05 Visit Guanako AMBULATOR 350.1.13.21 Elver Y 0.2.7.2.686 [id number] 2018-10-06 2018-10-06 Office Puma, BCM 1.2.840.114 [id number] 09:26:38 11:12:41 Visit Camachog E. AMBULATOR 350.1.13.21 Y 0.2.7.2.686 [id number] 2018-09-26 2018-09-26 Office Ben CORONA 1.2.840.114 [id number] 14:51:46 15:42:54 Visit , Jc AMBULATOR 350.1.13.21 Y 0.2.7.2.686 [id number] 2018-08-30 2018-08-30 [id number] [facility] [address] 13:30:00 13:30:00 [facility] ent Clinics Results Test Test Test Results Result Source Description Time Comments Comments CT, SPINE, 2020-01- Unlisted CERVICAL, 15 Reason for WITHOUT IV 15:38:00 Exam - [facility] - MEDICAL CONTRAST Click Yes CENTERName: [facility]ERAS and Shira DAWSON : 1970 Reason Sex: Below->Yes M Unlisted Reason for *FINAL REPORT PATIENT ID: Exam->R29.8 [id number] Exam: CT cervical 98, R25.3 spine without [...] foraminal narrowing at C6-C7. Signed: Katie Pena [facility] Verified Date/Time: 02/13/2020 15:38:11 , BRAIN, WITH 2020-01- Unlisted IV CONTRAST 15 Reason for 15:25:00 Exam - [facility] - MEDICAL Click Yes CENTERName: [facility] and Shira DAWSON : 1970 Reason Sex: Below->Yes M Unlisted Reason for *FINAL REPORT PATIENT ID: Exam->R29.8 [id number] Exam: CT brain with 98, R25.3 contrast [...] Pena Verified Date/Time: 02/13/2020 15:25:34 Reading Location: [facility] Room [address] [place] [address] brain with 2020-01- Interface, External Ris In - [facility] IV contrast 15 02/13/2020 3:27 PM CSTFINAGUILA Monge - 15:25:00 REPORT Medical Exam: CT brain [...] Pena Verified Date/Time: 02/13/2020 15:25:34 Reading Location: [facility] Reading Room [address] [place] [address] -Creatinine 2020-02-13 13:12:00 Test Item Value Reference Range Interpretation Comme nts POC-Creatinine (test code = 0.7 mg/dL 0.6-1.3 : TESTED AT [facility] [address]) [facility] A, [facility] [address]: Insulation Supervisor/Techni regi ID = [id number] for DON ELY POC-EGFR (test code = 1860) 119 mL/min/1.73M2 [facility]-[id number] 13:12:00 Test Item Value Reference Range Interpretation Comments POC-CREATININE 0.7 mg/dL 0.6-1.3 : TEST[facility] AT [facility] (test [address] [facility] code = 1859) A, [facility] 7 7414: Insulation Supervisor/Techni regi ID = [id number] for DON ELY POC-EGFR 119 mL/min/1.73M2 (BEAKER) (test code = 1860) [place], LUMBAR PUNCTURE, [id number] 11:18:00Labs to be ordered:->Other (please add comment)Reason for Exam:->R29.898, R25.3 [facility] 1970 Sex: MFINAL REPORT Examination: Fluoroscopic guided lumbar puncture Clinical indication: Weakness of the arms; fasciculations. Physician: Dr. Katie Pena Anesthesia: None. Medications:1% lidocaine and bicarbonate. Exposure/ DAP: L5-S1 [id number] time: L5-S1 min. Procedure: Informed consent was obtained from the patient following delineation of the risks, benefits, and alternatives to the procedure. Patient was then taken to the fluoroscopy suite and placed prone on the table. Preliminary imaging of the lumbosacral spine was performed. The patient's back was marked, prepped and draped in the usual sterile fashion. After administration of local anesthesia, v98-oajlw Sprotte needle was advanced to the right [...] MDReport Verified Date/Time: 02/02/2020 11:18:53 Reading Location: [facility] Room [address] [place] [address] [place] Lumbar Puncture [id number] 11:18:00 Interface, External Ris In - 02/02/2020 11:21 AM CSTFINAL REPORT Examination:Fluoroscopic guided lumbar puncture Clinical indication: Weakness of the arms; fasciculations. Physician: Dr. Katie Pena Anesthesia: None. Medications:1% lidocaine and bicarbonate. Exposure/ DAP: L5-S1 [id number] time: L5-S1 min. Procedure: Informed consent was [...] MDReport Verified Date/Time: 02/02/2020 11:18:53 Reading Location: [place] [address] [facility], WITHOUT [id number] 09:28:00FINAL REPORT CT, BRAIN, WITHOUT CONTRAST CLINICAL [...] is recommended for further characterization. Signed: Kizzy Valles MDReport Verified Date/Time: 09/01/2018 09:28:39 Reading Location: [address] Neuro Reading Room BASIC METABOLIC [id number] 05:26:00 Test Item Value Reference Range Interpretation [...] m DATA TO CALCULA TE ESTIMATED GFR. [id number] 05:19:00 Test Item Value Reference Range Interpretation Comments PHOSPHORUS (BEAKER) (test code = 3.9 mg/dL 2.3-4.7 604) [id number] 05:19:00 Test Item Value Reference Range Interpretation [...] 0-0 (BEAKER) (test code = 413) [place], HEAD OF COMMISSION DEPARTMENT IN OR/30 MINUTE [id number] 22:17:00Reason for exam:- >Stage 1 Implantation Deep Brain StimulatorFINAL REPORT Examination: Intraoperative evaluation 195 images were obtainedduring the procedure by the ordering service. Images are nondiagnostic as no radiologist was present at the time of imaging. Fluoroscopic time was 4.0 seconds. Please see the procedure report for details. Signed: Joss Lozano MDReport Verified Date/Time: 08/31/2018 22:17:49 Reading Location: [address] Reading Room MR, BRAIN, [id number] 16:39:00FINAL REPORT MR, BRAIN, WITH \T\ WITHOUT [...] Valles Verified Date/Time: 08/12/2018 16:39:59 Reading Location: [facility] Radiology Reading Room CT, BRAIN, WITHOUT [id number] 13:29:00parkinson's diseaseFINAL REPORT CT, BRAIN, WITHOUT CONTRAST CLINICAL INDICATION: Parkinson's disease (HCC) G20 parkinson's disease COMPARISON: None TECHNIQUE: Thin section noncontrast axial CT imaging of the brain and skull, per [facility] protocol. DOSE REDUCTION: Dose modulation, iterative reconstruction, [...] findings: None. IMPRESSION: No acute intracranial abnormality. [facility] neuronavigational study. Signed: JR Brandt Robert MDReport Verified Date/Time: 08/12/2018 13:29:39 Reading Location: [facility] C0[facility] Neuro Reading Room
[2020-06-08] MEDS ORDERED: NA CHLORIDE 0.9% 3,000 ML ONE (23:17)
[2020-06-08] MEDS ORDERED: CEFEPIME 2 GM VIAL ONE (23:26)
[2020-06-08] MEDS ORDERED: NA CHLORIDE 0.9% 100 ML ONE (23:26)
[2020-06-09] LABS: Absolute Lymphocytes (CBC) 0.4 K/uL (0.7-4.9); Basophils % 0.2 % (0-1.3); Hematocrit 43.3 % (39.6-49.0); Lymphocytes % 2.9 % (15.3-44.8); MPV 9.4 fL (7.6-11.3)
[2020-06-09 00:22] LABS: Platelet Estimate ADEQ
[2020-06-09 00:23] LABS: Blood Morphology Comment NOT SEEN (NOT SEEN)
[2020-06-09] MEDS ORDERED: VANCOMYCIN 1 GM/VIAL ONE (00:28)
[2020-06-09] MEDS ORDERED: NA CHLORIDE 0.9% 250 ML ONE (00:28)
[2020-06-09] MEDS ORDERED: CLINDAMYCIN 900MG/D5W 900 MG/50 ML IVPB IV ONE (00:28)
[2020-06-09 00:29] LABS: SARS-COV-2 RT PCR NEGATIVE (NEGATIVE)
[2020-06-09 00:30] LABS: ALT/SGPT 24 U/L (12-78); AST/SGOT 15 U/L (15-37); Albumin 2.7 g/dL (3.4-5.0); Alkaline Phosphatase 68 U/L (45-117); BUN Blood Urea Nitrogen 19 mg/dL (7-18); Bicarbonate 26 mmol/L (21-32); Bilirubin Direct 0.1 mg/dL (0-0.2); Bilirubin Total 0.3 mg/dL (0.2-1.0); Glucose Level 229 mg/dL (74-106); Magnesium 1.9 mg/dL (1.8-2.4); NT PRO-BNP 32 pg/mL (<125); Potassium 4.7 mmol/L (3.5-5.1); Protein, Total 6.4 g/dL (6.4-8.2); Sodium Level 136 mmol/L (136-145); Troponin (Emerg Dept Use Only) 0.02 ng/mL (0.0-0.045)
--- NOTE | 2020-06-09 00:50 | EDPHYS ---
Physician Documentation [facility] Name: Sameer Shea Age: 50 yrs Sex: Male : 1970 Arrival Date: 06/08/2020 Time: 22:48 Bed 2 Private MD: ED Physician Abdulkadir Fleming HPI: 06/08 23:00 This 50 yrs old Male presents to ER via EMS with complaints of Difficulty cp Breathing. 23:00 The patient has shortness of breath at rest. Onset: The symptoms/episode began/occurred cp today. 23:00 EMS reports patient starting having difficulty breathing and near syncopal episode cp tonight after returning home. Historical: - Allergies: 22:53 No Known Allergies; wh - PMHx: 22:53 Hypertension; Parkinsons; ALS; wh - Immunization history:: Adult Immunizations unknown. - Social history:: Smoking status: unknown. ROS: 23:00 Respiratory: Positive for shortness of breath, at rest. cp 23:00 Constitutional: Negative for fever. cp 23:00 Cardiovascular: Negative for chest pain. 23:00 Abdomen/GI: Negative for abdominal pain. 23:00 All other systems are negative. Exam: 23:00 ECG was reviewed by the Attending Physician. cp 23:05 Constitutional: The patient appears alert, awake, non-diaphoretic, well developed, well cp nourished, obviously ill. 23:05 Head/Face: Normocephalic, atraumatic. cp 23:05 Eyes: Pupils: equal, round, and reactive to light and accomodation, Conjunctiva: normal, no exudate, no injection, Sclera: no appreciated abnormality, Lids and lashes: appear normal, bilaterally. 23:05 ENT: External ear(s): are unremarkable, Nose: is normal, Mouth: Lips: moist, Oral mucosa: moist, Posterior pharynx: Airway: no evidence of obstruction, patent. 23:05 Chest/axilla: Inspection: normal, Palpation: is normal, no crepitus, no tenderness. 23:05 Cardiovascular: Rate: tachycardic, Rhythm: regular, Edema: is not appreciated, JVD: is not appreciated. 23:05 Respiratory: moderate respiratory distress is noted, Respirations: shallow respirations, that is moderate, Breath sounds: bronchial sounds, that are moderate, are heard diffusely. 23:05 Abdomen/GI: Inspection: abdomen appears normal, Bowel sounds: active, all quadrants, Palpation: abdomen is soft and non-tender, in all quadrants. 23:05 Skin: no rash present. Vital Signs: 22:50 BP 82 / 49; Pulse 120; Resp 22; Temp 96.8; Pulse Ox 93% on BiPAP; 23:06 Weight 66.22 kg (R); 06/09 00:00 BP 116 / 100; Pulse 103; Resp 21; Pulse Ox 98% on BiPAP; 01:00 BP 130 / 94; Pulse 123; Resp 24; Pulse Ox 100% on BiPAP; 02:06 BP 128 / 84; Pulse 118; Resp 22; Pulse Ox 96% on BiPAP; MDM: 06/08 22:56 Patient medically screened. cp 23:05 Differential diagnosis: Myocardial Infarction pneumonia, Pneumothorax Sepsis. 06/09 00:45 Data reviewed: vital signs, nurses notes, lab test result(s), EKG, radiologic studies, cp plain films, and as a result, I will admit patient. 06/08 22:58 Order name: Basic Metabolic Panel 06/08 22:58 Order name: CBC with Diff 06/08 22:58 Order name: LFT's 06/08 22:58 Order name: Magnesium cp 06/08 22:58 Order name: NT PRO-BNP 06/08 22:58 Order name: PT-INR 06/08 22:58 Order name: Troponin (emerg Dept Use Only) 06/08 22:58 Order name: COVID-19 : Document "Date of Symptom Onset" if Symptomatic. 06/08 22:58 Order name: Lactate cp 06/08 22:58 Order name: Procalcitonin 06/08 22:58 Order name: Blood Culture Adult (2) 06/08 22:58 Order name: Influenza Screen (a \\T\\ B) 06/08 22:58 Order name: Basic Metabolic Panel; Complete Time: 00:35 EDMS 06/09 00:35 Interpretation: Normal except: GLUC 229; BUN 19; CA 8.4. 06/08 22:58 Order name: CBC with Automated Diff; Complete Time: 00:23 EDMS 06/09 00:23 Interpretation: Normal except: WBC 14.20; KORY% 91.3; LYM% 2.9; NEUT A 13.0; LYMA 0.4. 06/08 22:58 Order name: XRAY Chest (1 view); Complete Time: 15:13 cp 06/08 22:58 Order name: Liver (Hepatic) Function; Complete Time: 00:35 EDMS 06/08 22:58 Order name: Magnesium; Complete Time: 00:35 EDMS 06/08 22:58 Order name: NT PRO-BNP; Complete Time: 00:35 EDMS 06/08 22:58 Order name: Protime (+INR); Complete Time: 15:13 EDMS 06/08 22:58 Order name: Troponin (Emerg Dept Use Only); Complete Time: 00:35 EDMS 06/09 00:36 Interpretation: TROPED 0.02; Reviewed. 06/08 22:58 Order name: Lactate; Complete Time: 00:23 EDMS 06/08 22:58 Order name: Procalcitonin; Complete Time: 15:13 EDMS 06/08 23:21 Order name: Glucose, Ancillary Testing; Complete Time: 00:23 EDMS 06/09 00:23 Interpretation: Abnormal: GLUC,ANCIL 244. 06/09 00:05 Order name: Manual Differential; Complete Time: 00:35 EDMS 06/09 00:36 Interpretation: Reviewed. 06/09 00:24 Order name: ABG 06/09 00:29 Order name: COVID-19/FLU A+B; Complete Time: 00:35 EDMS 06/09 00:39 Order name: CT Chest For PE Angio 06/08 22:58 Order name: EKG; Complete Time: 22:59 cp 06/08 22:58 Order name: Cardiac monitoring; Complete Time: 23:03 cp 06/08 22:58 Order name: EKG - Nurse/Tech; Complete Time: 23:03 cp 06/08 22:58 Order name: IV Saline Lock; Complete Time: 23:03 cp 06/08 22:58 Order name: Labs collected and sent; Complete Time: 23:03 cp 06/08 22:58 Order name: O2 Per Protocol; Complete Time: 23:03 cp 06/08 22:58 Order name: O2 Sat Monitoring; Complete Time: 23:03 cp 06/08 22:58 Order name: Short; Complete Time: 00:15 cp 06/08 23:33 Order name: Labs - recollect needed: chemistry, and coags; Complete Time: 00:31 mw2 06/09 01:38 Order name: CONS Physician Consult EDMS EC/10 23:00 Rate is 123 beats/min. Rhythm is regular. WV interval is normal. QRS interval is cp normal. QT interval is normal. T waves are Inverted in lead aVR. Interpreted by me. Reviewed by me. Administered Medications: 23:18 Drug: NS 0.9% (30 ml/kg) 30 ml/kg Route: IV; Rate: bolus; Site: left antecubital; 23:50 Drug: Cefepime 2 grams Route: IVPB; Rate: 200 ml/hr; Infused Over: 30 mins; Site: left antecubital; 06/09 01:53 Follow up: Response: No adverse reaction; IV Status: Completed infusion 00:31 Drug: Clindamycin 900 mg Route: IVPB; Infused Over: 30 mins; Site: left antecubital; 01:53 Follow up: Response: No adverse reaction; IV Status: Completed infusion 02:08 Drug: vancoMYCIN 1 grams Route: IVPB; Infused Over: 2 hrs; Site: left antecubital; 02:12 Follow up: Response: No adverse reaction; IV Status: Infusion continued upon admission Disposition: 01:30 Chart complete. cp 06:05 Co-signature as Attending Physician, Abdulkadir Fleming MD. 7 Disposition: 06/09/20 00:50 Hospitalization ordered by Elyse Ford for Inpatient Admission. Preliminary diagnosis are Pneumonia due to other specified bacteria, Other sepsis. - Bed requested for Telemetry/MedSurg (Inpatient). - Status is Inpatient Admission. - Condition is Stable. - Problem is new. - Symptoms have improved. Signatures: Dispatcher [employer] EDKY Maria C Santos RN RN mw Ballard, Brenda, RN RN bb Page, Corey, PA PA cp Habalo, Winsy, RN RN Sharon Mtital [facility] Abdulkadir Fleming MD MD 7 Corrections: (The following items were deleted from the chart) 06/08 23:37 22:58 CORONAVIRUS ordered. EDKY EDMS 06/09 00:23 00:23 Normal except: WBC 14.20; KORY% 91.3; LYM% 2.9; NEUT A 13.0. cp cp 00:35 00:35 Normal except: GLUC 229; BUN 19. cp cp 01:52 00:50 Hospitalization Ordered by Elyse Ford MD for Inpatient Admission. Preliminary diagnosis is Pneumonia due to other specified bacteria; Other sepsis. Bed requested for Telemetry/MedSurg (Inpatient). Status is Inpatient Admission. Condition is Stable. Problem is new. Symptoms have improved. cp 01:55 01:52 06/09/2020 00:50 Hospitalization Ordered by Elyse Ford MD for Inpatient mw Admission. Preliminary diagnosis is Pneumonia due to other specified bacteria; Other sepsis. Bed requested for Telemetry/MedSurg (Inpatient). Status is Inpatient Admission. Condition is Stable. Problem is new. Symptoms have improved. mw 02:49 01:55 06/09/2020 00:50 Hospitalization Ordered by Elyse Ford MD for Inpatient Admission. Preliminary diagnosis is Pneumonia due to other specified bacteria; Other sepsis. Bed requested for Telemetry/MedSurg (Inpatient). Status is Inpatient Admission. Condition is Stable. Problem is new. Symptoms have improved. mw
--- NOTE | 2020-06-09 00:50 | ER ---
Nurse's Notes [facility] Name: Sameer Shea Age: 50 yrs Sex: Male : 1970 Arrival Date: 06/08/2020 Time: 22:48 Bed 2 Private MD: Diagnosis: Pneumonia due to other specified bacteria;Other sepsis Presentation: 06/08 22:50 Chief complaint: EMS states: Pt slid down from wheel chair per family. Pt with HX of wh ALS, according to EMS pt was unresponsive initially and cyanotic. Pt was on home BIPAP and was placed on EMS BIPAP. Pt was initially 66% on home BIPAP. Coronavirus screen: Client denies travel out of the [place] in the last 14 days. shortness of breath, Client presents with at least one sign or symptom that may indicate coronavirus-19. Ebola Screen: Patient negative for fever greater than or equal to 101.5 degrees Fahrenheit, and additional compatible Ebola Virus Disease symptoms Patient denies exposure to infectious person. Initial Sepsis Screen: Does the patient meet any 2 criteria? RR > 20 per min. HR > 90 bpm. Does the patient have a suspected source of infection? No. Patient's initial sepsis screen is negative. Risk Assessment: Do you want to hurt yourself or someone else? Patient reports no desire to harm self or others. Onset of symptoms was June 08, 2020. 22:50 Method Of Arrival: EMS: [facility] 22:50 Acuity: NATALIIA 3 22:54 Care prior to arrival: IV initiated. 20 GA, in the left antecubital area, Glucose check: 261. Triage Assessment: 06/09 02:07 General: Behavior is. Historical: - Allergies: 06/08 22:53 No Known Allergies; - PMHx: 22:53 Hypertension; Parkinsons; ALS; - Immunization history:: Adult Immunizations unknown. - Social history:: Smoking status: unknown. Screenin:14 Abuse screen: Denies threats or abuse. Denies injuries from another. Nutritional screening: No deficits noted. Tuberculosis screening: No symptoms or risk factors identified. Fall Risk Fall in past 12 months (25 points). Secondary diagnosis (15 points) impaired mobility, ALS. Assessment: 23:14 General: Appears distressed. Pain: Denies pain. Neuro: Level of Consciousness is awake, wh alert, Pt with Hx of Parkinsons and ALS. Pt non verbal and wheel chair bound. Per EMS communicates through hand sign of yes or no. Cardiovascular: Heart tones S1 S2 Rhythm is sinus tachycardia. Respiratory: Airway is patent Respiratory effort is labored, Respiratory pattern is tachypnea Breath sounds are diminished bilaterally. GI: Abdomen is flat, non-distended, PEG tube. : No signs and/or symptoms were reported regarding the genitourinary system. EENT: No signs and/or symptoms were reported regarding the EENT system. Derm: Skin is intact. Musculoskeletal: Parent/caregiver report the patient having Hx of ALS. 06/09 01:00 Reassessment: Patient appears in no apparent distress at this time. No changes from previously documented assessment. Patient and/or family updated on plan of care and expected duration. Pain level reassessed. Patient is alert, oriented x 3, equal unlabored respirations, skin warm/dry/pink. 01:30 Reassessment: Hospitalist at bedside explaining POC need for admit. 02:05 Reassessment: Patient appears in no apparent distress at this time. Patient and/or family updated on plan of care and expected duration. Pain level reassessed. Patient is alert, oriented x 3, equal unlabored respirations, skin warm/dry/pink. Vital Signs: 06/08 22:50 BP 82 / 49; Pulse 120; Resp 22; Temp 96.8; Pulse Ox 93% on BiPAP; 23:06 Weight 66.22 kg (R); 06/09 00:00 BP 116 / 100; Pulse 103; Resp 21; Pulse Ox 98% on BiPAP; 01:00 BP 130 / 94; Pulse 123; Resp 24; Pulse Ox 100% on BiPAP; 02:06 BP 128 / 84; Pulse 118; Resp 22; Pulse Ox 96% on BiPAP; ED Course: 06/08 22:48 Patient arrived in ED. 22:50 Shahida Dewey, REUBEN is Primary Nurse. 22:51 Jl Ness PA is PHCP. cp 22:51 Abdulkadir Fleming MD is Attending Physician. cp 22:53 Triage completed. 23:17 Patient has correct armband on for positive identification. Placed in gown. Bed in low wh position. Call light in reach. Side rails up X 1. school lunch monitor on. Pulse ox on. NIBP on. 23:18 Arm band placed on right wrist. 23:47 XRAY Chest (1 view) In Process Unspecified. EDNJ 06/09 00:11 Short cath inserted, using sterile technique, 16 Fr., by tn, balloon inflated, to oe gravity drainage, Patient tolerated well. 00:49 Elyse Ford MD is Hospitalizing Provider. cp 01:05 First set of blood cultures drawn unable to get full set of blood cultures used pedi bb culture after multiple attempts by staff. 02:26 No provider procedures requiring assistance completed. Patient admitted, IV remains in place. Administered Medications: 06/08 23:18 Drug: NS 0.9% (30 ml/kg) 30 ml/kg Route: IV; Rate: bolus; Site: left antecubital; 23:50 Drug: Cefepime 2 grams Route: IVPB; Rate: 200 ml/hr; Infused Over: 30 mins; Site: left antecubital; 06/09 01:53 Follow up: Response: No adverse reaction; IV Status: Completed infusion 00:31 Drug: Clindamycin 900 mg Route: IVPB; Infused Over: 30 mins; Site: left antecubital; 01:53 Follow up: Response: No adverse reaction; IV Status: Completed infusion 02:08 Drug: vancoMYCIN 1 grams Route: IVPB; Infused Over: 2 hrs; Site: left antecubital; 02:12 Follow up: Response: No adverse reaction; IV Status: Infusion continued upon admission Outcome: 00:50 Decision to Hospitalize by Provider. cp 02:27 Admitted to Tele accompanied by nurse, via stretcher, room 424, with oxygen, with chart, Report called to Diana ALEXIS 02:27 Condition: stable 02:27 Instructed on the need for admit. 02:49 Patient left the ED. Signatures: Dispatcher [employer] Eloina Delgado, REUBEN RN Jl Kemp PA PA cp Espinosa, Orlando oe Habalo, Winsy, RN RN Corrections: (The following items were deleted from the chart) 06/08 23:13 23:06 81.65 kg Reported; bb 23:14 23:13 BP 82 / 49; Pulse 120bpm; Resp 22bpm; Pulse Ox 93% BiPAP; Temp 96.8F; wh wh
[2020-06-09 01:15] LABS: Protime INR 1.19
--- NOTE | 2020-06-09 02:10 | P.HP ---
Certification for Inpatient Patient admitted to: Inpatient With expected LOS: >2 Midnights Patient will require the following post-hospital care: None Practitioner: I am a practitioner with admitting privileges, knowledge of patient current condition, hospital course, and medical plan of care. Services: Services provided to patient in accordance with Admission requirements found in Title 42 Section 412.3 of the Code of Federal Regulations <MarshallMatias Verónica - Last Filed: 06/09/20 02:20> Patient History Date of Service: 06/09/20 Primary Care Provider: Rufus Reason for admission: pneumonia History of Present Illness: Mr. Shea is a 50 yo male with HTN, Parkinsons, and ALS here today after sudden onset SOB, labored breathing, and diaphoresis beginning around 730pm. His rushed him home where he became nonresponsive and was unable to swallow. She could not get him in or out of the wheelchair, but she was able to start his home BiPAP by the time EMS arrived. He normally only uses BiPAP at night or as needed. Before tonight, he was at baseline functioning with no symptoms. Denies night sweats, chills, and cough. He had a peg tube placed on Wednesday but has not begun to use it yet. says she feeds him soft foods but he chokes pretty easily. Today he had oatmeal and sausage. She says he is now at baseline - he communicates with thumb (yes) and pointer finger (no). WBC 14.2. Glu 229. Initially hypotensive and tachycardic on arrival. - Past Medical/Surgical History Diabetic: No -: Hypertension -: Parkinson's -: ALS -: Deep brain stimulator -: Bilateral shoulder surgery -: PEG tube placement Psychosocial/ Personal History: Patient lives at home with his , is disab ed. - Family History Mother -: Heart disease - Social History Smoking Status: Never smoker Alcohol use: No CD- Drugs: No Caffeine use: No Place of Residence: Home <Matias Olivares - Last Filed: 06/09/20 02:20> Date of Service: 06/09/20 <Elyse Ford - Last Filed: 06/10/20 07:43> Allergies hydrocodone Allergy (Verified 06/09/20 03:47) Itching Home Medications: Lisinopril [Zestril] 20 mg PO DAILY 04/22/20 Mirtazapine 15 mg PO BEDTIME 04/22/20 Tamsulosin HCl 0.4 mg PO BEDTIME 04/22/20 Carbidopa/Levodopa [Rytary ER 48.75 mg-195 mg Cap] 1 each PO BID 06/09/20 Hyoscyamine Sulfate 0.125 mg SL BID 06/09/20 hydrOXYzine pamoate [Hydroxyzine Pamoate] 25 mg PO BID 6AM 6PM 06/09/20 Review of Systems General: Sweats, As per HPI Eyes: Unremarkable ENT: Unremarkable Respiratory: Shortness of Breath, As per HPI Cardiovascular: Unremarkable Gastrointestinal: Unremarkable Genitourinary: Unremarkable Musculoskeletal: Unremarkable Integumentary: Unremarkable Neurological: Unremarkable Lymphatics: Unremarkable <Matias Olivares - Last Filed: 06/09/20 02:20> Physical Examination - Physical Exam General: In no apparent distress, Cooperative, Other (nonverbal, communicates with thumb and pointer finger) HEENT: Atraumatic, Normocephalic, PERRLA, Mucous membr. moist/pink, EOMI, Sclera e nonicteric Neck: Supple, 2+ carotid pulse no bruit, JVD not distended, No Thyromegaly, No LAD Respiratory: Diminished, Dull Cardiovascular: No edema, Normal pulses, Regular rate/rhythm, Normal S1 S2, No gallops, No rubs, No murmurs Capillary refill: <2 Seconds Gastrointestinal: Normal bowel sounds, Soft and benign, Non-distended, No ascites, No tenderness, No masses, No rebound, No guarding, Other (PEG tube intact, site clean) Musculoskeletal: No clubbing, No swelling, No contractures, No erythema, No tenderness, No warmth Integumentary: No rashes, No breakdown, No significant lesion, No tenderness/swelling, No erythema, No warmth, No cyanosis Neurological: Sensation intact, Other ( reports at baseline neurological functioning ), Abnormal gait, Abnormal speech, Abnormal strength, Abnormal tone, Abnormal cranial nerve function, Abnormal reflexes, Abnormal affect Lymphatics: No axilla or inguinal lymphadenopathy Urinary: Short catheter - Studies Laboratory Data (last 24 hrs) 06/09/20 00:50: PT 13.7 H, INR 1.19 06/08/20 23:51: WBC 14.20 H, Hgb 14.1, Hct 43.3, Plt Count 223 06/08/20 23:51: Sodium 136, Potassium 4.7, BUN 19 H, Creatinine 0.61, Glucose 229 H, Magnesium 1.9, Total Bilirubin 0.3, AST 15, ALT 24, Alkaline Phosphatase 68 <Matias Olivares - Last Filed: 06/09/20 02:20> - Studies Microbiology Data (last 24 hrs): 06/08/20 13:45 Blood - Blood Anaerobic Blood Culture - Final 06/09/20 01:05 Blood - Blood Anaerobic Blood Culture - Final <Elyse Ford Jj - Last Filed: 06/10/20 07:43> Assessment and Plan - Problems (Diagnosis) (1) ALS (amyotrophic lateral sclerosis) Current Visit: Yes Status: Chronic (2) Parkinson disease Current Visit: Yes Status: Chronic (3) Hypertension Current Visit: Yes Status: Chronic Qualifiers: Hypertension type: essential hypertension Qualified Code(s): I10 - Essential (primary) hypertension (4) S/P percutaneous endoscopic gastrostomy (PEG) tube placement Current Visit: Yes Status: Chronic (5) Pneumonia Current Visit: Yes Status: Acute Qualifiers: Pneumonia type: due to unspecified organism Laterality: right Lung location: lower lobe of lung Qualified Code(s): J18.9 - Pneumonia, unspecified organism - Plan Pulm consulted, RT consulted, currently on continuous BiPAP. Patient is DNI. Currently calm. Cultures pending, continue IV abx, continue with IVF Use suction as needed Patient with new PEG tube placement but has not started feeds, dietitian consulted for tube feedings CRP pending, CTPE pending, DVT ppx Discharge Plan: Home Plan to discharge in: 72 Hours - Advance Directives Does patient have a Living Will: No Does patient have a Durable POA for Healthcare: No - Code Status/Comfort Care Code Status Assessed: Yes (DNI) Critical Care: No Time Spent Managing Pts Care (In Minutes): 70 <Matias Olivares - Last Filed: 06/09/20 02:20> Date of Service: 06/09/20 Agree with plan of care as mentioned above. Spoke with family and at this time patient is a do not resuscitate. Family is thinking of hospice as patient's condition is worsening. Patient has a living will and he would not want to be resuscitated. He does not want tracheostomy. Advised patient's family to get 2nd opinion from pulmonary. Possible hospice arrangements tomorrow. <Elyse Ford - Last Filed: 06/10/20 07:43>
[2020-06-09] MEDS ORDERED: NA CHLORIDE 0.9% 1,000 ML IV SCH (02:34)
[2020-06-09] MEDS ORDERED: ALBUTEROL 2.5 MG/3 ML NEB SOL NEB PRN (02:34)
[2020-06-09] MEDS ORDERED: ONDANSETRON 4 MG/2 ML VIAL IV PRN (02:34)
[2020-06-09 03:49] VITALS: BMI 24.8
[2020-06-09 06:10] LABS: Urine Appearance CLEAR (Clear); Urine Bilirubin NEGATIVE (Negative); Urine Blood 1+ (Negative); Urine Color YELLOW (Yellow); Urine Glucose NEGATIVE (Negative); Urine Protein NEGATIVE (Negative); Urine Specific Gravity >=1.030 (1.005-1.030); Urine Urobilinogen 0.2 mg/dL (0.2-1.0)
[2020-06-09 06:30] LABS: Urine Microscopic Reflex ORDER UMIC
[2020-06-09 06:56] LABS: Urine Bacteria <20 /HPF (NONE SEEN)
[2020-06-09 07:18] LABS: Blood Gas Oxyhemoglobin 87.7 % (94-97); Blood O2 Saturation 89.4 % (92-98.5)
[2020-06-09] MEDS: INSULIN -REGULAR HUMAN 50 UNIT/0.5 ML ML SQ SCH ×3 (07:30→16:15)
[2020-06-09 08:01] LABS: Absolute Lymphocytes (CBC) 0.6 K/uL (0.7-4.9); Basophils % 0.3 % (0-1.3); Lymphocytes % 4.2 % (15.3-44.8); RBC Red Blood Cell Count 4.84 M/uL (4.33-5.43)
[2020-06-09 08:20] LABS: ALT/SGPT 22 U/L (12-78); AST/SGOT 12 U/L (15-37); Albumin 2.5 g/dL (3.4-5.0); Alkaline Phosphatase 67 U/L (45-117); BUN Blood Urea Nitrogen 14 mg/dL (7-18); Bicarbonate 26 mmol/L (21-32); Bilirubin Total 0.3 mg/dL (0.2-1.0); Glucose Level 107 mg/dL (74-106); Magnesium 1.9 mg/dL (1.8-2.4); Phosphorus 3.4 mg/dL (2.5-4.9); Potassium 5.3 mmol/L (3.5-5.1); Protein, Total 6.1 g/dL (6.4-8.2); Sodium Level 138 mmol/L (136-145)
[2020-06-09] MEDS ORDERED: CEFEPIME/SWI 1gm 10 ML IVP SCH (09:00)
[2020-06-09] MEDS ORDERED: CEFEPIME 1 GM/VIAL IV SCH (09:00)
[2020-06-09] MEDS: Levofloxacin 750mg IV 750 MG/150 ML BAG IV SCH (09:10)
[2020-06-09] MEDS: ENOXAPARIN 40 MG/0.4 ML SQ SCH (09:11)
--- NOTE | 2020-06-09 10:37 | P.CNS ---
Date of Consult: 06/09/20 Reason for Consult: Respiratory failure Primary Care Provider: Rufus Chief Complaint: Respiratory distress History of Present Illness: Patient is 50 years of age has a history of end-stage ALS family he was at a ball game developed some respiratory distress the try to resuscitate him came in here to the hospital he looks fine now patient has a BiPAP at home recently had a PEG tube placed and [facility] patient only communicates with his her right thumb otherwise he is stable Allergies hydrocodone Allergy (Verified 06/09/20 03:47) Itching Home Medications: Lisinopril [Zestril] 20 mg PO DAILY 04/22/20 Mirtazapine 15 mg PO BEDTIME 04/22/20 Tamsulosin HCl 0.4 mg PO BEDTIME 04/22/20 Carbidopa/Levodopa [Rytary ER 48.75 mg-195 mg Cap] 1 each PO BID 06/09/20 Hyoscyamine Sulfate 0.125 mg SL BID 06/09/20 hydrOXYzine pamoate [Hydroxyzine Pamoate] 25 mg PO BID 6AM 6PM 06/09/20 - Past Medical/Surgical History Diabetic: No -: Hypertension -: Parkinson's -: ALS -: Deep brain stimulator -: Bilateral shoulder surgery -: PEG tube placement Psychosocial/ Personal History: Patient lives at home with his , is disabled. - Family History Mother Medical History: Heart disease - Social History Smoking Status: Unknown if ever smoked Alcohol use: No CD- Drugs: No Caffeine use: No Place of Residence: Home Review of Systems is unable to be obtained Physical Examination Temp Pulse Resp BP Pulse Ox 96.8 F 117 H 21 H 120/89 94 06/09/20 04:00 06/09/20 04:00 06/09/20 04:00 06/09/20 04:00 06/09/20 04:00 General: Alert, Cooperative Respiratory: Diminished (Diminished on the right side more than the left) Cardiovascular: No edema, Normal S1 S2 Laboratory Data (last 24 hrs) 06/09/20 00:50: PT 13.7 H, INR 1.19 06/08/20 23:51: WBC 14.20 H, Hgb 14.1, Hct 43.3, Plt Count 223 06/08/20 23:51: Sodium 136, Potassium 4.7, BUN 19 H, Creatinine 0.61, Glucose 229 H, Magnesium 1.9, Total Bilirubin 0.3, AST 15, ALT 24, Alkaline Phosphatase 68 - Problems (1) Atelectasis Current Visit: Yes Status: Acute Plan: Patient is 50 years of age. I suspect that she has had a he has atelectasis of the right lung continue with present therapy of order chest percussion doubt sepsis vital signs are stable Dc cefepime r start tube feeds and water flushes Dc IV fluids possible discharge tomorrow
[2020-06-09] MEDS: ALBUTEROL 2.5 MG/3 ML NEB SOL NEB SCH ×2 (11:36→20:20)
--- NOTE | 2020-06-09 11:36 | RAD REPORT ---
EXAM DESCRIPTION: RAD - Chest Single View - 06/08/2020 11:47 pm CLINICAL HISTORY: SOB Chest pain. COMPARISON: Chest Single View dated 04/21/2020; Chest For Pe Angio dated 06/09/2020 FINDINGS: Portable technique limits examination quality. Moderate right pleural effusion is suspected with probable atelectasis or infiltrate in the right mireya g base. Left lung is grossly clear. The heart is normal in size. Stimulator device is present obscuri ng a portion of the left upper lobe.Distention of bowel loops is seen in the upper abdomen.
[2020-06-09] MEDS: JEVITY 1.2 CAL LIQUID 1,000 ML BOT FT SCH ×2 (14:15→21:00)
[2020-06-09] MEDS ORDERED: LORazepam 2 MG/ML VIAL IV STA (17:31)
[2020-06-09] MEDS ORDERED: MORPHINE 2 MG/ML SYR IV ONE (21:01)
[2020-06-09] MEDS ORDERED: MORPHINE 2 MG/ML SYR IV PRN (21:01)
[2020-06-09] MEDS ORDERED: LORazepam 2 MG/ML VIAL IV PRN (23:00)
[2020-06-10] MEDS: INSULIN -REGULAR HUMAN 50 UNIT/0.5 ML ML SQ SCH ×3 (00:31→12:00)
[2020-06-10] MEDS: ALBUTEROL 2.5 MG/3 ML NEB SOL NEB SCH ×2 (02:05→07:46)
--- NOTE | 2020-06-10 07:17 | EKG ---
Test Date: 2020-06-08 Test Time: 22:52:29 Labor And Delivery Nurse: KELSEA MEASUREMENT RESULTS: Intervals: Rate: 123 KS: 140 QRSD: 78 QT: 324 QTc: 463 [place]: P: 54 KS: 140 QRS: 20 T: 41 INTERPRETIVE STATEMENTS: Sinus tachycardia with premature atrial complexes with aberrant conduction Otherwise normal ECG Compared to ECG 04/21/2020 22:46:56 Atrial premature complex(es) now present Aberrant conduction of supraventricular beat(s) now present Electronically Signed On 06-10-20 07:14:20 CDT by Marko Yo
[2020-06-10 07:51] LABS: ALT/SGPT 42 U/L (12-78); AST/SGOT 37 U/L (15-37); Albumin 2.5 g/dL (3.4-5.0); Alkaline Phosphatase 83 U/L (45-117); BUN Blood Urea Nitrogen 19 mg/dL (7-18); Bicarbonate 27 mmol/L (21-32); Bilirubin Total 0.3 mg/dL (0.2-1.0); Glucose Level 172 mg/dL (74-106); Protein, Total 6.7 g/dL (6.4-8.2); Sodium Level 141 mmol/L (136-145)
[2020-06-10 07:52] LABS: Potassium 5.6 mmol/L (3.5-5.1)
--- NOTE | 2020-06-10 08:04 | RAD REPORT ---
EXAM DESCRIPTION: [place] Single View06/10/2020 4:37 am CLINICAL HISTORY: Chest pain COMPARISON: June 08, 2020 FINDINGS: Allowing for differences in positioning there is been no significant change in the right lung atelectasis. Left lung appears clear of acute infiltrate. Heart is normal size IMPRESSION: No significant change in the extensive right lung atelectasis
[2020-06-10 08:19] LABS: Absolute Lymphocytes (CBC) 0.4 K/uL (0.7-4.9); Basophils % 0.3 % (0-1.3); Lymphocytes % 2.3 % (15.3-44.8); MPV 9.9 fL (7.6-11.3); RBC Red Blood Cell Count 5.38 M/uL (4.33-5.43)
[2020-06-10] MEDS: JEVITY 1.2 CAL LIQUID 1,000 ML BOT FT SCH ×2 (09:00→14:00)
[2020-06-10 09:28] LABS: Blood Morphology Comment NOT SEEN (NOT SEEN); Platelet Estimate ADEQ; Platelets, Giant PRESENT; White Blood Cell Scan OK (OK)
[2020-06-10] MEDS: Levofloxacin 750mg IV 750 MG/150 ML BAG IV SCH (10:10)
[2020-06-10] MEDS: ENOXAPARIN 40 MG/0.4 ML SQ SCH (10:10)
[2020-06-10 11:02] VITALS: BP 95/64; TEMP 95.5
--- NOTE | 2020-06-10 11:29 | RAD REPORT ---
EXAM DESCRIPTION: CT Angiography Chest With Intravenous Contrast CLINICAL HISTORY: The patient is 50 years old and is Male; SOB TECHNIQUE: Axial computed tomographic angiography images of the chest with intravenous contrast. S agittal and coronal reformatted images were created and reviewed. This CT exam was performed using one or more of the following dose reduction techniques: automated exposure control, adjustment of t he mA and/or kV according to patient size, and/or use of iterative reconstruction technique. MIP re constructed images were created and reviewed. COMPARISON: No relevant prior studies available. FINDINGS: Pulmonary arteries: No evidence of pulmonary embolism. Aorta: No acute findings. No thoracic aortic aneurysm. Lungs: Extensive consolidation of the right lower lobe and right upper lobe with some sparing of the right middle lobe. Pleural space: Unremarkable. No significant effusion. No pneumothorax. Heart: Unremarkable. No cardiomegaly. No significant pericardial effusion. No evidence of RV dysfunction. Bones/joints: No acute fracture. No dislocation. Soft tissues: Unremarkable. Lymph nodes: Unremarkable. No enlarged lymph nodes. IMPRESSION: 1. Extensive consolidation of the right lower lobe and right upper lobe with some spar ing of the right middle lobe. Recommend follow-up imaging to resolution to exclude underlying malig saray. 2. No evidence of pulmonary embolism. Electronically signed by: Tank Smith MD 06/09/2020 2:47 AM CDT Due to temporary technical issues with the PACS/Fluency reporting system, reports are being signed by the in house radiologist without review as a courtesy to ensure prompt reporting. The interpreting r adiologist is fully responsible for the content of the report.
--- NOTE | 2020-06-10 11:42 | P.PN ---
Subjective Date of Service: 06/10/20 Primary Care Provider: Rufus Chief Complaint: Respiratory distress Subjective: Other (Code Blue called. CPR in progress.) Physical Examination - Vital Signs Temperature: 95.5 F Blood Pressure: 95/64 Pulse: 98 Respirations: 20 Pulse Ox (%): 100 - Studies Microbiology Data (last 24 hrs): 06/08/20 13:45 Blood - Blood Anaerobic Blood Culture - Final 06/09/20 01:05 Blood - Blood Anaerobic Blood Culture - Final Assessment & Plan Discharge Plan: Home (with Hospice) Plan to discharge in: 24 Hours Physician Review Additional Text: Physical Exam: CODE blue called. CPR was done. After about 5 minutes, a pulse was obtained. Patient stabilized. H:RRR L: decreased to the based bilateral AB: soft, NT, PEG tube in place. Impression: Acute respiratory failure with large right consolidation of the right lung likely related to pneumonia and atelectasis complicated with ALS Recent PEG tube Parkinson HTN Plan: Patient revived with CPR. Spoke to at length about advanced directives. She has made him DNR and DNI. is wanted to wait for mother before Hospice in place. Once the mother arrives then will pursue Hospice. Patient is inpatient hospice appropriate. Will discuss with social work and Pulmonary. Time Spent Managing Pts Care (In Minutes): 55
[2020-06-10 11:56] VITALS: O2SAT 96
--- NOTE | 2020-06-10 12:28 | P.PN ---
Subjective Date of Service: 06/10/20 Primary Care Provider: Rufus Chief Complaint: Respiratory distress Subjective: Improving (Patient is improving oxygen requirements have been decreasing chest x-ray shows some volume loss on the right side) Review of Systems is unable to be obtained Physical Examination - Vital Signs Temperature: 95.5 F Blood Pressure: 95/64 Pulse: 98 Respirations: 20 Pulse Ox (%): 100 - Physical Exam General: Unresponsive (Patient had sedation recently) Neck: Supple Respiratory: Clear to auscultation bilaterally, Diminished - Studies Microbiology Data (last 24 hrs): 06/08/20 13:45 Blood - Blood Anaerobic Blood Culture - Final 06/09/20 01:05 Blood - Blood Anaerobic Blood Culture - Final Assessment & Plan - Problems (Diagnosis) (1) Atelectasis Current Visit: Yes Status: Acute Plan: Continue with chest percussion with breathing treatments every 4 hr with right- sided up titrate O2 to a sat of about 90% patient's potassium is elevated patient is currently on tube feeds blood pressure is little low discontinue all sedation possible discharge tomorrow they have a pneumonia continue with antibiotic patient has a PEG tube this I received some tube feeds prognosis very poor
[2020-06-10] MEDS ORDERED: NA CHLORIDE 0.9% 1,000 ML IV SCH (13:00)
[2020-06-10] MEDS ORDERED: MORPHINE 2 MG/ML SYR IV PRN (14:23)
[2020-06-10] MEDS ORDERED: LORazepam 2 MG/ML VIAL IV SCH (15:00)
[2020-06-10] MEDS ORDERED: LORazepam 2 MG/ML VIAL IV PRN (15:26)
--- NOTE | 2020-06-10 17:04 | P.DS ---
Admission Date: 06/09/20 Discharge Date: 06/10/20 Primary Care Provider: Dr. Hooper Disposition: Reason for Admission: Respiratory distress Consultations: Pulmonary-Dr. Rowland Procedures: Impression: Acute respiratory failure with large right consolidation of the right lung likely related to pneumonia and atelectasis complicated with ALS Recent PEG tube Parkinson HTN Brief History of Present Illness: 50 yo male with HTN, Parkinsons, and ALS presented with sudden onset SOB, labored breathing, and diaphoresis. His rushed him home where he became nonresponsive and was unable to swallow. She could not get him in or out of the wheelchair, but she was able to start his home BiPAP by the time EMS arrived. He normally only uses BiPAP at night or as needed. Patient came in with acute respiratory failure. Patient admitted for treatment. Hospital Course: Patient presented with acute respiratory failure with large right consolidation of the right lung. This was likely related to pneumonia and atelectasis. This was complicated with patient having ALS and Parkinson's. His condition rapidly declined. Advanced directives were addressed in the course of his stay. Patient remained DO NOT INTUBATE. This had been expressed by the patient in the past. His condition did not improve. At one point PATRICE WINSTON was called. Patient was without a pulse. Pulse was returned after CPR was performed. No medication was required. After this event advance directives readdressed. Tish pan understood that his condition was declining. understood his prognosis was poor. made the patient DO NOT INTUBATE and DO NOT RESUSCITATE. After family came to see the patient, and family made the decision to withdraw care and keep the patient comfortable. IPAP was removed. Patient . May he rest in peace. Vital Signs/Physical Exam: Temp Pulse Resp BP Pulse Ox 95.5 F L 98 H 20 95/64 100 06/10/20 12:28 06/10/20 12:28 06/10/20 12:28 06/10/20 12:28 06/10/20 12:28 Other Physical/Emotional Findings: Laboratory Data at Discharge: WBC 17.10 K/uL (4.3-10.9) H D 06/10/20 07:03 Hgb 16.1 g/dL (13.6-17.9) 06/10/20 07:03 Hct 49.0 % (39.6-49.0) 06/10/20 07:03 Plt Count 221 K/uL (152-406) 06/10/20 07:03 PT 13.7 SECONDS (9.5-12.5) H 06/09/20 00:50 INR 1.19 06/09/20 00:50 Sodium 141 mmol/L (136-145) 06/10/20 07:03 Potassium 5.6 mmol/L (3.5-5.1) H* 06/10/20 07:03 BUN 19 mg/dL (7-18) H 06/10/20 07:03 Creatinine 0.47 mg/dL (0.55-1.3) L 06/10/20 07:03 Glucose 172 mg/dL (74-106) H 06/10/20 07:03 Phosphorus 3.4 mg/dL (2.5-4.9) 06/09/20 07:42 Magnesium 1.9 mg/dL (1.8-2.4) 06/09/20 07:42 Total Bilirubin 0.3 mg/dL (0.2-1.0) 06/10/20 07:03 AST 37 U/L (15-37) 06/10/20 07:03 ALT 42 U/L (12-78) 06/10/20 07:03 Alkaline Phosphatase 83 U/L (45-117) 06/10/20 07:03 Home Medications: Lisinopril [Zestril] 20 mg PO DAILY 04/22/20 Mirtazapine 15 mg PO BEDTIME 04/22/20 Tamsulosin HCl 0.4 mg PO BEDTIME 04/22/20 Carbidopa/Levodopa [Rytary ER 48.75 mg-195 mg Cap] 1 each PO BID 06/09/20 Hyoscyamine Sulfate 0.125 mg SL BID 06/09/20 hydrOXYzine pamoate [Hydroxyzine Pamoate] 25 mg PO BID 6AM 6PM 06/09/20 Physician Discharge Instructions: May he rest in peace. Followup: Unknown,U [Primary Care Provider] - Time spent managing pt's care (in minutes): 55
== END 2020-06-10 15:30 | disposition expired | DRG 177 ==
LOC: ER 22:43 → ERHOLD 06-09 01:40 → 4TH 06-09 02:28 → 2ND 06-09 20:09
PROVIDERS: ADMIT Hospitalist; ATTEND Family Medicine
PROC: 5A09457 Assistance with Respiratory Ventilation, 24-96 Consecutive Hours, Continuous Positive Airway Pressure (ICD-10-PCS; principal; 2020-06-09)
PROC: 5A12012 Performance of Cardiac Output, Single, Manual (ICD-10-PCS; 2020-06-10)
DX: J69.0 Pneumonitis due to inhalation of food and vomit (principal); J96.00 Acute respiratory failure, unspecified whether with hypoxia or hypercapnia; R53.2 Functional quadriplegia; G12.21 Amyotrophic lateral sclerosis; J98.11 Atelectasis; I10 Essential (primary) hypertension; E87.5 Hyperkalemia; G20 Parkinson's disease; Z66 Do not resuscitate; Z88.5 Allergy status to narcotic agent; Z79.899 Other long term (current) drug therapy; Z93.1 Gastrostomy status; Z20.822 Contact with and (suspected) exposure to COVID-19
CPT/HCPCS: 0240U; 36415; 51702; 71045; 71275; 80048; 80053; 80076; 81003; 81015; 82805; 82947; 83605; 83735; 83880; 84100; 84145; 84484; 85025; 85610; 86140; 87040; 87086; 87088; 93005; 94660; 94667; 94760; 96365; 96375; 99285; J0692; J1650; J2270; J3370; J7030; J7050; Q9967